=== PATIENT | female | born 1945 | race Caucasian/White ===

== ENCOUNTER → 2016-07-10 | Outpatient (CLI) | payer MEDICARE ==
[2016-07-10 08:38] LABS: Aty Lym Flag Slight; CH 30.8; HCT 40.4 % (34.0-46.0); HDW 2.53; HGB 13.7 gm/dL (11.4-16.0); MCH 30.8 pg (25.0-35.0); MCHC 33.8 g/dL (31.0-37.0); MCV 91.1 fL (80.0-100.0); Mean Platelet Volume 7.1; RBC 4.44 m/uL (3.80-5.40); RDW 11.9 % (11.5-15.5); WBC 4.6 k/uL (3.8-10.6); WBC (Perox) 4.99
[2016-07-10 09:14] LABS: ALT 29 U/L (9-52); AST 21 U/L (14-36); Alkaline Phosphatase 38 U/L (38-126); Anion Gap 11 mmol/L; Blood Urea Nitrogen 16 mg/dL (7-17); Calcium 9.9 mg/dL (8.4-10.2); Carbon Dioxide 30 mmol/L (22-30); Chloride 101 mmol/L (98-107); Cholesterol 197 mg/dL (<200); Glucose 90 mg/dL (74-99); HDL Cholesterol 85 mg/dL (40-60); Non-African American GFR(MDRD) >60 (>60 ml/min/1.73 sqM); Potassium 4.1 mmol/L (3.5-5.1); Sodium 142 mmol/L (137-145); Total Bilirubin 0.9 mg/dL (0.2-1.3); Total Protein 7.8 g/dL (6.3-8.2); Triglycerides 54 mg/dL (<150)
[2016-07-10 09:32] LABS: Add Differential Manual Differential
[2016-07-10 09:34] LABS: Manual Review Performed; Nucleated Red Blood Cells 0 /100 WBC (0-0); Total Cells Counted 100
[2016-07-10 09:35] LABS: RBC Morphology Normal
--- NOTE | 2016-07-10 13:43 | BD ---
EXAMINATION TYPE: MG DEXA axial skeleton. DATE OF EXAM: 07/10/2016 8:27 AM CLINICAL HISTORY: Height: 121 Weight: 64.25 FRAX RISK QUESTIONS: Alcohol (3 or more units per day): no Family History (Parent hip fracture): no Glucocorticoids (More than 3mos): no (Ex: prednisone, prednisolone, methylprednisolone, dexamethasone, and hydrocortisone). History of Fracture in Adulthood: yes Secondary Osteoporosis: 1. Type 1 Diabetes: no 2. Hyperthyroidism: no 3. Menopause before 45: no 4. Malnutrition: no 5. Chronic liver disease: no Rheumatoid Arthritis: no Current Tobacco Use: no RISK FACTORS HISTORY OF: Other Fractures since Age 51: yes, elbow When: about 3 years ago Family History of Osteoporosis: no Drink Alcohol: yes, sometimes Active: yes Diet low in dairy products/other sources of calcium: no Postmenopausal woman: yes Take estrogen and/or progesterone medications: no Lost more than 2 inches in height since high school: no Frequent falls: no Poor Health: no Hyperparathyroidism: no Adrenal Insufficiency: no MEDICATIONS: Prednisone or other steroids: no Thyroid Medications: no Osteoporosis Medications: not now Which medication: Fosamax How Long: a couple years Additional Medications: calcium with Vitamin D, blood pressure meds EXAM MEASUREMENTS: Bone mineral densitometry was performed using the [employer] System. Bone mineral density as measured about the Lumbar spine is: ----- L1-L4(G/cm2): 1.395 T Score Values are as follows: ----- L2: 1.1 ----- L3: 2.8 ----- L4: 2.6 ----- L1-L4: 1.8 Bone mineral density has: Increased 12.2% since study of: 05/14/2006 Bone mineral density about the R hip (g/cm2): 0.896 Bone mineral density about the L hip (g/cm2): 0.832 T Score values are as follows: -----R Neck: -1.0 -----L Neck: -1.5 -----R Intertrochanter: -0.5 -----L Intertrochanter: -0.5 Bone mineral density has: Decreased -2.8% since study of: 05/14/2006 IMPRESSION: Normal (Values between +1 and -1 indicate normal bone mass) NOTE: T-SCORE=SD OF THE YOUNG ADULT MEAN.
--- NOTE | 2016-07-11 10:38 | MM ---
Reason for exam: screening (asymptomatic). Last mammogram was performed 1 year and 3 months ago. History: Patient is postmenopausal. Benign stereotactic core biopsy of the right breast, March 18, 2003. Physical Findings: A clinical breast exam by your physician is recommended on an annual basis and results should be correlated with mammographic findings. MG 3D Screening Mammo W/Cad Bilateral CC and MLO view(s) were taken. Prior study comparison: April 14, 2015, bilateral MG screening mammo w CAD. March 23, 2014, bilateral MG screening mammo w CAD. Previous mammotome biopsy in the right breast. Stable nodule in the left upper outer quadrant posterior position. No significant changes when compared with prior studies. ASSESSMENT: Benign, BI-RAD 2 RECOMMENDATION: Routine screening mammogram of both breasts in 1 year.
== END ==
LOC: RADMAMWWP 07:03
PROVIDERS: ATTEND Family Medicine
DX: Z12.31 Encounter for screening mammogram for malignant neoplasm of breast (principal); Z78.0 Asymptomatic menopausal state
CPT/HCPCS: 80061; 80053; 84443; 85025; 77080; 77063; 36415; G0202

== ENCOUNTER → 2017-07-17 | Outpatient (CLI) | payer MEDICARE ==
--- NOTE | 2017-07-17 13:57 | MR ---
EXAMINATION TYPE: MR angio head wo con DATE OF EXAM: 07/17/2017 COMPARISON: 09/11/2015 HISTORY: 71-year-old female follow-up Cerebral Aneurysm TECHNIQUE: High-resolution 3-D [id number] images focusing on the [place] were performed without contrast. Rotational 3-D reconstructions generated on a dedicated independent workstation. 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 Currently, this measures 3.4 x 1.6 cm, slightly less pronounced. This may reflect some interval development of internal thrombus. Redemonstrated persistent origin to the left posterior cerebral artery. No significant stenosis or arterial occlusion. No additional aneurysmal change seen. 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 This may be secondary to interval development of some thrombus withi n the aneurysm.
== END | disposition home or self-care (01) ==
LOC: RADMRIMAIN 07:36
PROVIDERS: ATTEND Family Medicine
DX: I72.6 Aneurysm of vertebral artery (principal)
CPT/HCPCS: 70544

== ENCOUNTER → 2017-07-31 | Outpatient (CLI) | payer MEDICARE ==
--- NOTE | 2017-07-31 13:34 | MM ---
Reason for exam: screening (asymptomatic). Last mammogram was performed 1 year and 1 month ago. History: Patient is postmenopausal. Benign stereotactic core biopsy of the right breast, March 18, 2003. Physical Findings: A clinical breast exam by your physician is recommended on an annual basis and results should be correlated with mammographic findings. MG 3D Screening Mammo W/Cad Bilateral CC and MLO view(s) were taken. Prior study comparison: July 10, 2016, bilateral MG 3d screening mammo w/cad. April 14, 2015, bilateral MG screening mammo w CAD. The breast tissue is heterogeneously dense. This may lower the sensitivity of mammography. No suspicious abnormality. Right biopsy marker with post biopsy change. No significant changes when compared with prior studies. ASSESSMENT: Benign, BI-RAD 2 RECOMMENDATION: Routine screening mammogram of both breasts in 1 year.
== END | disposition home or self-care (01) ==
LOC: RADMAMWWP 09:37
PROVIDERS: ATTEND Family Medicine
DX: Z12.31 Encounter for screening mammogram for malignant neoplasm of breast (principal)
CPT/HCPCS: 77063; 77067

== ENCOUNTER 2019-12-15 09:13 | Day surgery (SDC) | payer MEDICARE ==
[2019-12-10 14:46] VITALS: BMI 20.5
[~2019-12-15 09:13] MED LIST: LACTATED RINGERS 1,000 ML IV SCH; LIDOCAINE 1% (10MG/ML) FOR IV START INTRADERMA PRN
[2019-12-15 10:01] VITALS: TEMP 98.5
[2019-12-15] MEDS ORDERED: PROPOFOL 10 MG/ML 20 ML VIAL IV ONE (10:53)
[2019-12-15] MEDS ORDERED: LIDOCAINE 1% INJ 10MG/ML (20 ML MDV) ONE (10:53)
--- NOTE | 2019-12-15 11:10 | P.PCN ---
Date of Procedure: 12/15/19 Procedure(s) Performed: BRIEF HISTORY: Patient is a 74-year-old pleasant white female scheduled for an elective colonoscopy as a part of evaluation of chronic diarrhea for the last 6 months duration. She has bowel movements daily from 5-6 a day which are loose to watery in consistency. Denies any blood or mucus in the stool. PROCEDURE PERFORMED: Colonoscopy with random biopsy. PREOPERATIVE DIAGNOSIS: Chronic diarrhea of 6 months duration. IV sedation per Anesthesia. PROCEDURE: After informed consent was obtained, the patient, was brought into the endoscopy unit. IV sedation was administered by Anesthesia under continuous monitoring. Digital rectal examination was normal. Initially the Olympus CF-160 flexible video colonoscope was then inserted in the rectum, gradually advanced into the cecum without any difficulty. Careful examination was performed as the scope was gradually being withdrawn. Ileocecal valve and the appendiceal orifice were visualized and appeared normal. Prep was excellent. Mucosa of the cecum, ascending colon, transverse colon, descending colon, sigmoid colon, and rectum appeared normal. Random biopsies were done from ascending and descending colon to rule out microscopic/collagenous colitis Retroflexion was performed in the rectum and no lesions were seen. The patient tolerated the procedure well. IMPRESSION: Normal-appearing colon from rectum to cecum no evidence of colorectal neoplasia. RECOMMENDATIONS: Findings of this examination were discussed with the patient as well as a family. She was advised to follow with the biopsy results and she'll be seen in office in 2 weeks.
[2019-12-15 11:16] VITALS: RESP 16
[2019-12-15 11:36] VITALS: BP 106/59; PULSE 61
== END 2019-12-15 11:51 | disposition home or self-care (01) ==
LOC: ORWHC2ENDO 09:13
PROVIDERS: ATTEND Internal Medicine Gastroenterology
DX: K52.831 Collagenous colitis (principal); K52.9 Noninfective gastroenteritis and colitis, unspecified; Z79.82 Long term (current) use of aspirin; Z79.899 Other long term (current) drug therapy; I10 Essential (primary) hypertension
CPT/HCPCS: 45380; 88305; 88313; J2001; J2704

== ENCOUNTER → 2019-12-20 | Outpatient (CLI) | payer MEDICARE ==
--- NOTE | 2019-12-20 11:58 | BD ---
EXAMINATION TYPE: Axial Bone Density DATE OF EXAM: 12/20/2019 COMPARISON: 07/10/2016 CLINICAL HISTORY: Postmenopausal female Height: 63 IN Weight: 121 LBS FRAX RISK QUESTIONS: Alcohol (3 or more units per day): YES History of Fracture in Adulthood: LEFT ELBOW FX AGE 67 RISK FACTORS HISTORY OF: Active: YES Postmenopausal woman: PARTIAL HYST AGE 48 Take estrogen and/or progesterone medications: NOT NOW How lon YEARS MEDICATIONS: Additional Medications: CALCIUM, MULTI VIT, LISINOPRIL, HCTZ, GARLIC, BABY ASPIRIN EXAM MEASUREMENTS: Bone mineral densitometry was performed using the [employer]. Bone mineral density as measured about the Lumbar spine is: ----- L1-L4(G/cm2): 1.361 T Score Values are as follows: ----- L2: 1.0 ----- L3: 2.3 ----- L4: 2.7 ----- L1-L4: 1.5 Bone mineral density has: Decreased -0.9% since study of: 07/10/2016 Bone mineral density about the R hip (g/cm2): 0.872 Bone mineral density about the L hip (g/cm2): 0.818 T Score values are as follows: -----R Neck: -1.2 -----L Neck: -1.6 -----R Total: -0.5 -----L Total: -0.6 Bone mineral density has: Decreased -1.3% since study of: 07/10/2016 IMPRESSION: Normal (Values between +1 and -1 indicate normal bone mass). Consider repeating this study in 5 year s or sooner if there is some new clinical indication. NOTE: T-SCORE=SD OF THE YOUNG ADULT MEAN.
--- NOTE | 2019-12-21 12:06 | MM ---
Reason for exam: screening (asymptomatic). Last mammogram was performed 1 year and 3 months ago. History: Patient is postmenopausal. Benign stereotactic core biopsy of the right breast, March 18, 2003. Physical Findings: A clinical breast exam by your physician is recommended on an annual basis and results should be correlated with mammographic findings. MG 3D Screening Mammo W/Cad Bilateral CC and MLO view(s) were taken. Prior study comparison: September 03, 2018, bilateral MG 3d screening mammo w/cad. July 31, 2017, bilateral MG 3d screening mammo w/cad. The breast tissue is heterogeneously dense. This may lower the sensitivity of mammography. There are benign appearing vascular calcifications bilaterally. Previous mammotome biopsy in the right breast. There is no discrete abnormality. ASSESSMENT: Benign, BI-RAD 2 RECOMMENDATION: Routine screening mammogram of both breasts in 1 year.
== END | disposition home or self-care (01) ==
LOC: RADMAMWWP 10:13
PROVIDERS: ATTEND Family Medicine
DX: Z12.31 Encounter for screening mammogram for malignant neoplasm of breast (principal); Z78.0 Asymptomatic menopausal state
CPT/HCPCS: 77063; 77067; 77080

== ENCOUNTER → 2021-02-22 | Outpatient (CLI) | payer MEDICARE ==
--- NOTE | 2021-02-23 13:51 | MM ---
Reason for exam: screening (asymptomatic). Last mammogram was performed 1 year and 2 months ago. History: Patient is postmenopausal. Benign stereotactic core biopsy of the right breast, March 18, 2003. Physical Findings: A clinical breast exam by your physician is recommended on an annual basis and results should be correlated with mammographic findings. MG 3D Screening Mammo W/Cad Bilateral CC and MLO view(s) were taken. Prior study comparison: December 20, 2019, bilateral MG 3d screening mammo w/cad. September 03, 2018, bilateral MG 3d screening mammo w/cad. The breast tissue is heterogeneously dense. This may lower the sensitivity of mammography. Stable benign calcifications. There is no discrete abnormality. No significant changes when compared with prior studies. ASSESSMENT: Benign, BI-RAD 2 RECOMMENDATION: Routine screening mammogram of both breasts in 1 year.
== END | disposition home or self-care (01) ==
LOC: RADMAMWWP 09:11
PROVIDERS: ATTEND Family Medicine
DX: Z12.31 Encounter for screening mammogram for malignant neoplasm of breast (principal)
CPT/HCPCS: 77063; 77067

== ENCOUNTER → 2022-02-25 | Outpatient (CLI) | payer MEDICARE ==
--- NOTE | 2022-02-26 15:24 | MM ---
Reason for Exam: Screening (asymptomatic). Last screening mammogram was performed 12 month(s) ago. Patient History: Menarche at age 14. First Full-Term at age 26. Hysterectomy at age 57. Postmenopausal. 03/18/2003, Benign Stereotactic Core Biopsy on the right side. Risk Values: Yolanda 5 year model risk: 2.3%. NCI Lifetime model risk: 5.0%. Prior Study Comparison: 09/03/2018 Bilateral Screening Mammogram, [facility]. 12/20/2019 Bilateral Screening Mammogram, [facility]. 02/22/2021 Bilateral Screening Mammogram, [facility]. Tissue Density: The breast tissue is heterogeneously dense. This may lower the sensitivity of mammography. Findings: Analyzed By CAD. Benign-appearing vascular calcifications bilaterally is redemonstrated. There is mammotome biopsy clip in the right breast again seen. Benign-appearing bilateral axillary lymph nodes are present. There is no suspicious group of microcalcifications or new suspicious mass in either breast. Overall Assessment: Benign, BI-RAD 2 Management: Screening Mammogram of both breasts in 1 year. A clinical breast exam by your physician is recommended on an annual basis and results should be correlated with mammographic findings. Electronically signed and approved by: Won Pierson M.D.
== END | disposition home or self-care (01) ==
LOC: RADMAMWWP 11:36
PROVIDERS: ATTEND Family Medicine
DX: Z12.31 Encounter for screening mammogram for malignant neoplasm of breast (principal); Z78.0 Asymptomatic menopausal state
CPT/HCPCS: 77063; 77067

== ENCOUNTER → 2023-02-26 | Outpatient (CLI) | payer MEDICARE ==
--- NOTE | 2023-02-27 10:15 | MM ---
Reason for Exam: Screening (asymptomatic). Last screening mammogram was performed 12 month(s) ago. Patient History: Menarche at age 14. First Full-Term at age 26. Hysterectomy at age 57. Postmenopausal. 03/18/2003, Benign Stereotactic Core Biopsy on the right side. Risk Values: Yolanda 5 year model risk: 2.3%. NCI Lifetime model risk: 4.7%. Prior Study Comparison: 12/20/2019 Bilateral Screening Mammogram, [facility]. 02/22/2021 Bilateral Screening Mammogram, [facility]. 02/25/2022 Bilateral MG 3D screening mammo w/cad, [facility]. Tissue Density: The breast tissue is heterogeneously dense. This may lower the sensitivity of mammography. Findings: Analyzed By CAD. Right breast biopsy clip. There is no suspicious group of microcalcifications or new suspicious mass. Overall Assessment: Benign, BI-RAD 2 Management: Screening Mammogram of both breasts in [address] [facility] will attempt to contact patient to return for supplemental views and ultrasound if indicated. Patient should continue monthly self-breast exams. A clinical breast exam by your physician is recommended on an annual basis. This exam should not preclude additional follow-up of suspicious palpable abnormalities. Note on Yolanda scores and lifetime risk: 1. A Yolanda score greater than 3% is considered moderate risk. If this is the case, consider specialist referral to assess eligibility for a risk reducing agent. 2. If overall lifetime risk for the development of breast cancer is 20% or higher, the patient may qualify for future screening with alternating mammogram and breast MRI. Electronically signed and approved by: Benjy Tipton DO
== END | disposition home or self-care (01) ==
LOC: RADMAMWWP 08:52
PROVIDERS: ATTEND Family Medicine
DX: Z12.31 Encounter for screening mammogram for malignant neoplasm of breast (principal); Z78.0 Asymptomatic menopausal state
CPT/HCPCS: 77063; 77067

== ENCOUNTER → 2023-03-05 | Outpatient (CLI) | payer MEDICARE ==
[2023-03-05 09:23] LABS: African American GFR (CKD) >90 (>60 ml/min/1.73 sqM); Blood Urea Nitrogen 21 mg/dL (7-17); Non-African American GFR(CKD) 85 (>60 ml/min/1.73 sqM)
--- NOTE | 2023-03-05 10:50 | CT ---
EXAMINATION TYPE: CT soft tissue neck w con DATE OF EXAM: 03/05/2023 COMPARISON: None HISTORY: 77-year-old female dyspnea, lump on left side of neck/throat TECHNIQUE: Contiguous axial scanning of the soft tissues of the neck performed with IV Contrast, jamie ent injected with 100 mL of Isovue 300. Coronal and sagittal reconstructions performed. CT DLP: 335 mGycm Automated exposure control for dose reduction was used. FINDINGS: Visualized orbits and globes, intracranial structures, and mastoid air cells appear clear. There is l eftward nasal septal deviation. The nasopharynx and oropharynx appears clear. Epiglottis and prevertebral soft tissues are satisfactory. Slight asymmetric soft tissue thickening along the left aryepiglottic fold but without discrete mass seen. Correlate with direct inspection. Otherwise, glottic and subglottic structures as well as the tracheal column appears clear. Some emphy sematous change in the visualized upper lungs. The thyroid and submandibular glands appear satisfactory. Atrophic parotid glands. Streak and beam mireles rdening artifact from the patient's earrings limiting full visualization. No cervical adenopathy identified. 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 IMPRESSION: 1. ASYMMETRIC SOFT TISSUE THICKENING LEFT ARYEPIGLOTTIC FOLD BUT WITHOUT DISCRETE MASS SEEN. CORRELAT E WITH FINDINGS ON DIRECT INSPECTION. 2. NO SUSPICIOUS CERVICAL ADENOPATHY IDENTIFIED. 3. COPD WITH MILD EMPHYSEMA.
[2023-03-05 14:56] LABS: Basophils # (A) 0.03 X 10*3/uL (0.00-0.10); Basophils % (A) 0.7 %; Eosinophils # (A) 0.16 X 10*3/uL (0.04-0.35); Eosinophils % (A) 3.6 %; HCT 41.4 % (37.2-46.3); HGB 13.5 g/dL (12.0-15.0); Lymphocytes # (A) 1.13 X 10*3/uL (0.90-5.00); Lymphocytes % (A) 25.2 %; MCH 29.8 pg (27.0-32.0); MCHC 32.6 g/dL (32.0-37.0); MCV 91.4 FL (80.0-97.0); Mean Platelet Volume 10.6 FL (9.5-12.2); Monocytes # (A) 0.53 X 10*3/uL (0.20-1.00); Monocytes % (A) 11.8 %; NRBC Per 100 WBC 0 X 10*3/uL (0.00-0.01); Neutrophils # (A) 2.62 X 10*3/uL (1.80-7.70); Neutrophils % (A) 58.5 %; Platelet Count 188 X 10*3/uL (140-440); RBC 4.53 X 10*6/uL (4.10-5.20); RDW 12.5 % (11.5-14.5); WBC 4.48 X 10*3/uL (4.50-10.00)
== END | disposition home or self-care (01) ==
LOC: RADCTMAIN 08:02
PROVIDERS: ATTEND Otolaryngology
DX: D37.09 Neoplasm of uncertain behavior of other specified sites of the oral cavity (principal); J44.9 Chronic obstructive pulmonary disease, unspecified; J43.9 Emphysema, unspecified; J38.7 Other diseases of larynx
CPT/HCPCS: 82565; 84520; 85025; 70491; 36415; Q9967

== ENCOUNTER 2023-04-07 16:25 | Inpatient (IN) | payer MEDICARE ==
--- NOTE | 2023-04-07 16:55 | ED ---
Neuro HPI - General Chief Complaint: Neuro Symptoms/Deficit Stated Complaint: SOB Time Seen by Provider: 04/07/23 16:36 Source: patient, family Mode of arrival: ambulatory Limitations: altered mental status - History of Present Illness Is the patient presenting with stroke symptoms?: Yes Last Known Well Date: 04/07/23 Last Known Well Time: 15:00 Onset/Timin -: hour(s) Initial Comments: This patient is 77-year-old woman who arrives to have evaluation for suspected stroke. The patient is not able to provide any history. The patient's states that he had taken her to have rehabilitation which she has been having following knee surgery. He states that when rehab was finished, she seemed very anxious and she was not able to speak with him. This got worse and he was concerned she was having a stroke. In the arrival the patient is not able to answer any questions. She is following simple commands here. No reported history of trauma at the rehab session today. Patient's states that his beejbyy-fr-wbl (the patient's brother) had a very similar episode following an orthopedic surgery and was found to be having a stroke. Location: speech Severity: severe Improves With: none Worsens With: none On Anticoagulants: No Context: sudden onset Treatments Prior to Arrival: none - Related Data Home Medications: Home Medications Medication Instructions Recorded Confirmed lisinopriL [Prinivil] 10 mg PO DAILY 12/10/19 04/10/23 Docusate [Colace] 100 mg PO BID PRN 04/07/23 04/10/23 HYDROcodone/APAP 7.5-325MG [[place] 1 tab PO Q4H PRN 04/07/23 04/10/23 7.5-325] Ondansetron [Zofran] 4 mg PO Q8H PRN 04/07/23 04/10/23 Previous Rx's Medication Instructions Recorded Aspirin 81 mg PO DAILY #30 tab 04/10/23 Atorvastatin [Lipitor] 40 mg PO DAILY #30 tab 04/10/23 Pantoprazole [Protonix] 40 mg PO DAILY #30 tab 04/10/23 Allergies/Adverse Reactions: Allergies Allergy/AdvReac Type Severity Reaction Status Date / Time No Known Allergies Allergy Verified 04/10/23 18:13 Review of Systems ROS Statement: Those systems with pertinent positive or pertinent negative responses have been documented in the HPI. ROS Other: All systems not noted in ROS Statement are negative. Limitations: ROS unobtainable due to patients medical condition Constitutional: Denies: fever Neurological: Reports: confusion General Exam Limitations: altered mental status General appearance: alert, anxious Head exam: Present: atraumatic, normocephalic Eye exam: Present: normal appearance, PERRL, EOMI. Absent: scleral icterus, conjunctival injection, nystagmus ENT exam: Present: normal oropharynx Neck exam: Present: normal inspection, full ROM. Absent: tenderness, meningismus Respiratory exam: Present: respiratory distress (Mild tachypnea). Absent: wheezes, rales, rhonchi, stridor, accessory muscle use Cardiovascular Exam: Present: regular rate, normal rhythm, normal heart sounds. Absent: systolic murmur, diastolic murmur, rubs, gallop GI/Abdominal exam: Present: soft. Absent: distended, tenderness, guarding, rebound, rigid, mass Extremities exam: Present: normal inspection, normal capillary refill. Absent: pedal edema, calf tenderness Back exam: Present: normal inspection. Absent: vertebral tenderness Neurological exam: Present: alert. Absent: motor sensory deficit Expanded Neurological exam: Present: expressive aphasia Speech: Present: expressive aphasia Cranial nerves: EOM's Intact: Normal, Gag Reflex: Normal, Tongue Deviation: Normal Motor strength exam: RUE: 5, LUE: 5, RLE: 5, LLE: 5 Eye Response: (4) open spontaneously Motor Response: (6) obeys commands Verbal Response: (1) no verbal response Skin exam: Present: warm, dry, intact, normal color. Absent: rash Stroke MDM - Lab Data Result diagrams: 04/10/23 07:29 04/09/23 07:48 Lab Results 04/07/23 04/07/23 04/07/23 Range/Units 16:47 16:47 16:47 WBC 8.7 (3.8-10.6) k/uL RBC 3.98 (3.80-5.40) m/uL Hgb 12.2 (11.4-16.0) gm/dL Hct 36.2 (34.0-46.0) % MCV 90.9 (80.0-100.0) fL MCH 30.7 (25.0-35.0) pg MCHC 33.8 (31.0-37.0) g/dL RDW 12.5 (11.5-15.5) % Plt Count 354 (150-450) k/uL MPV 8.2 Neutrophils % 67 % Lymphocytes % 22 % Monocytes % 8 % Eosinophils % 1 % Basophils % 0 % Neutrophils # 5.9 (1.3-7.7) k/uL Lymphocytes # 1.9 (1.0-4.8) k/uL Monocytes # 0.7 (0-1.0) k/uL Eosinophils # 0.1 (0-0.7) k/uL Basophils # 0.0 (0-0.2) k/uL PT 10.5 (10.0-12.5) sec INR 0.9 (<1.2) APTT 20.4 L (22.0-30.0) sec Sodium 133 L (137-145) mmol/L Potassium 4.0 (3.5-5.1) mmol/L Chloride 101 (98-107) mmol/L Carbon Dioxide 18 L (22-30) mmol/L Anion Gap 14 mmol/L BUN 24 H (7-17) mg/dL Creatinine 0.80 (0.52-1.04) mg/dL Est GFR (CKD-EPI)AfAm 83 (>60 ml/min/1.73 sqM) Est GFR (CKD-EPI)NonAf 72 (>60 ml/min/1.73 sqM) Glucose 102 H (74-99) mg/dL POC Glucose (mg/dL) (70-110) mg/dL POC Glu Editor Dictionary ID Calcium 9.3 (8.4-10.2) mg/dL Total Bilirubin 1.4 H (0.2-1.3) mg/dL AST 32 (14-36) U/L ALT 26 (4-34) U/L Alkaline Phosphatase 59 (38-126) U/L Creatine Kinase 100 (30-135) U/L Troponin I (0.000-0.034) ng/mL Total Protein 7.4 (6.3-8.2) g/dL Albumin 4.4 (3.5-5.0) g/dL 04/07/23 04/07/23 Range/Units 16:47 17:27 WBC (3.8-10.6) k/uL RBC (3.80-5.40) m/uL Hgb (11.4-16.0) gm/dL Hct (34.0-46.0) % MCV (80.0-100.0) fL MCH (25.0-35.0) pg MCHC (31.0-37.0) g/dL RDW (11.5-15.5) % Plt Count (150-450) k/uL MPV Neutrophils % % Lymphocytes % % Monocytes % % Eosinophils % % Basophils % % Neutrophils # (1.3-7.7) k/uL Lymphocytes # (1.0-4.8) k/uL Monocytes # (0-1.0) k/uL Eosinophils # (0-0.7) k/uL Basophils # (0-0.2) k/uL PT (10.0-12.5) sec INR (<1.2) APTT (22.0-30.0) sec Sodium (137-145) mmol/L Potassium (3.5-5.1) mmol/L Chloride (98-107) mmol/L Carbon Dioxide (22-30) mmol/L Anion Gap mmol/L BUN (7-17) mg/dL Creatinine (0.52-1.04) mg/dL Est GFR (CKD-EPI)AfAm (>60 ml/min/1.73 sqM) Est GFR (CKD-EPI)NonAf (>60 ml/min/1.73 sqM) Glucose (74-99) mg/dL POC Glucose (mg/dL) 106 (70-110) mg/dL POC Glu Editor Dictionary ID Glenys Suresh Calcium (8.4-10.2) mg/dL Total Bilirubin (0.2-1.3) mg/dL AST (14-36) U/L ALT (4-34) U/L Alkaline Phosphatase (38-126) U/L Creatine Kinase (30-135) U/L Troponin I <0.012 (0.000-0.034) ng/mL Total Protein (6.3-8.2) g/dL Albumin (3.5-5.0) g/dL - Medical Decision Making The patient is a 77-year-old woman here with the acute onset of aphasia. The case was discussed with the stroke team and their recommendation was to give tenecteplase if the noncontrast CT did not reveal an intracranial hemorrhage. I discussed this with the patient and her . The patient's did give consent as the patient was not able to indicate consent or reject treatment due to the aphasia. The discussion included indications, risks, and benefits. After the computed tomography scan had been interpreted tonight to place was ordered and was administered by nursing staff. The patient then did begin to have some improvement after interval. Case discussed with admitting physician and then subsequently with the sign fabricator as the patient will require admission there following thrombolytic treatment. The patient had CT scan of the brain which I interpreted as negative for acute intracranial hemorrhage The patient had chest x-ray which I interpreted as negative for acute infiltra te, congestive heart failure, pneumothorax Please note that the administration time for TNKase was delayed as the patient initially triaged as dyspnea rather than as a neurologic symptom complaint, and therefore not immediately activated as code. Was pt. sent in by a medical professional or institution (, PA, CLAM DREDGER, urgent care, hospital, or penitentiary...) When possible be specific @ -[No] Did you speak to anyone other than the patient for history (EMS, parent, family, police, friend...)? What history was obtained from this source @ -The patient's gave majority of history Did you review nursing and triage notes (agree or disagree)? Why? @ -[I reviewed and agree with nursing and triage notes] Were old charts reviewed (outside hosp., previous admission, EMS record, old E KG, old radiological studies, urgent care reports/EKG's, penitentiary records)? Report findings @ -[No old charts were reviewed] Differential Diagnosis (chest pain, altered mental status, abdominal pain women, abdominal pain men, vaginal bleeding, weakness, fever, dyspnea, syncope, headache, dizziness, GI bleed, back pain, seizure, CVA, palpatations, mental health, musculoskeletal)? @ -[Differential CVA Ischemic stroke, hemorrhagic stroke, brain tumor, atypical migraine, Wernicke's encephalopathy, seizure, multiple sclerosis, meningitis, encephalitis, hypoglycemia, Guillain-Mccarthy, electrolytes disturbance, myasthenia gravis.... This is not meant to be an all-inclusive list EKG interpreted by me (3pts min.). @ -[I interpreted as above] X-rays interpreted by me (1pt min.). @ -I interpreted as above CT interpreted by me (1pt min.). @ -[I interpreted as above U/S interpreted by me (1pt. min.). @ -[None done] What testing was considered but not performed or refused? (CT, X-rays, U/S, labs)? Why? @ -[None] What meds were considered but not given or refused? Why? @ -[None] Did you discuss the management of the patient with other professionals (professionals i.e. , PA, CLAM DREDGER, lab, RT, psych nurse, nursing home social worker, advanced manager, teacher, chief digital media officer, patient case manager)? Give summary @ -Case discussed with the stroke interventionalists team. Case discussed with admitting physician. Treatment recommendations are incorporated Was smoking cessation discussed for >3mins.? @ -[No] Was critical care preformed (if so, how long)? @ -[Yes 50 minutes Were there social determinants of health that impacted care today? How? (Homelessness, low income, unemployed, alcoholism, drug addiction, transportation, low edu. Level, literacy, decrease access to med. care, [facility], rehab)? @ -[No] Was there de-escalation of care discussed even if they declined (Discuss DNR or withdrawal of care, Hospice)? DNR status @ -[No] What co-morbidities impacted this encounter? (DM, HTN, Smoking, COPD, CAD, Cancer, CVA, ARF, Chemo, Hep., AIDS, mental health diagnosis, sleep apnea, morbid obesity)? @ -[None] Was patient admitted / discharged? Hospital course, mention meds given and route, prescriptions, significant lab abnormalities, going to OR and other pertinent info. @ -[See above Undiagnosed new problem with uncertain prognosis? @ -[No] Drug Therapy requiring intensive monitoring for toxicity (Heparin, Nitro, Insulin, Cardizem)? @ -[TNKase Were any procedures done? @ -[No] Diagnosis/symptom? @ -[Acute aphasia Acute ischemic stroke versus TIA Acute, or Chronic, or Acute on Chronic? @ -[Acute Uncomplicated (without systemic symptoms) or Complicated (systemic symptoms)? @ -[Complicated by aphasia Side effects of treatment? @ -[No] Exacerbation, Progression, or Severe Exacerbation? @ -[No] Poses a threat to life or bodily function? How? (Chest pain, USA, VT, pneumonia, PE, COPD, DKA, ARF, appy, cholecystitis, CVA, Diverticulitis, Homicidal, Suicidal, threat to staff... and all critical care pts) @ -[Yes - EKG Data -: EKG Interpreted by Me EKG shows normal: sinus rhythm, QRS complexes (Incomplete right bundle branch block) Rate: normal (Rate 86 bpm) Past Medical History Past Medical History: Hypertension History of Any Multi-Drug Resistant Organisms: None Reported Past Surgical History: Hysterectomy, Orthopedic Surgery Additional Past Surgical History / Comment(s): Knee surgery, left surgery surgery. Past Anesthesia/Blood Transfusion Reactions: No Reported Reaction Past Psychological History: No Psychological Hx Reported Smoking Status: Former smoker Past Alcohol Use History: Daily Past Drug Use History: None Reported - Past Family History Mother Family Medical History: No Reported History Course Vital Signs 04/07/23 04/07/23 04/07/23 16:30 16:35 16:50 Temperature 97.5 F L Pulse Rate 90 Respiratory 26 H 34 H 28 H Rate Blood Pressure 120/58 139/87 124/68 O2 Sat by Pulse 98 Oximetry 04/07/23 04/07/23 04/07/23 17:02 17:05 17:20 Temperature Pulse Rate 51 L 92 50 L Respiratory 28 H 32 H 34 H Rate Blood Pressure 151/103 114/104 130/97 O2 Sat by Pulse 95 91 L Oximetry 04/07/23 04/07/23 04/08/23 18:00 21:42 01:16 Temperature 100.7 F H Pulse Rate 75 90 Respiratory 18 18 Rate Blood Pressure 142/55 118/65 O2 Sat by Pulse 98 99 Oximetry 04/08/23 04/08/23 04/08/23 03:00 04:00 07:31 Temperature 99.2 F Pulse Rate 77 80 76 Respiratory 18 18 18 Rate Blood Pressure 129/68 132/65 122/70 O2 Sat by Pulse 98 96 98 Oximetry 04/08/23 08:06 Temperature 97.9 F Pulse Rate 85 Respiratory 48 H Rate Blood Pressure 119/63 O2 Sat by Pulse 98 Oximetry - Reevaluation(s) Reevaluation #1: 04/07/23 16:54 Case discussed with , from the interventional team who does recommend giving TNKase at this point if the computed tomography scan is negative. Critical Care Time Critical Care Time: Yes (50 minutes) Disposition Clinical Impression: Cerebrovascular accident (CVA), Aphasia Disposition: ADMITTED IP TO THIS HOSP Condition: Fair Is patient prescribed a controlled substance at d/c from ED?: No
--- NOTE | 2023-04-07 16:56 | ED ---
Neuro HPI - General Chief Complaint: Neuro Symptoms/Deficit Stated Complaint: SOB Time Seen by Provider: 04/07/23 16:36 Source: patient, family Mode of arrival: ambulatory Limitations: altered mental status - History of Present Illness Is the patient presenting with stroke symptoms?: Yes Last Known Well Date: 04/07/23 Last Known Well Time: 15:00 - Related Data Home Medications: Home Medications Medication Instructions Recorded Confirmed lisinopriL [Prinivil] 10 mg PO DAILY 12/10/19 04/10/23 Docusate [Colace] 100 mg PO BID PRN 04/07/23 04/10/23 HYDROcodone/APAP 7.5-325MG [[place] 1 tab PO Q4H PRN 04/07/23 04/10/23 7.5-325] Ondansetron [Zofran] 4 mg PO Q8H PRN 04/07/23 04/10/23 Previous Rx's Medication Instructions Recorded Aspirin 81 mg PO DAILY #30 tab 04/10/23 Atorvastatin [Lipitor] 40 mg PO DAILY #30 tab 04/10/23 Pantoprazole [Protonix] 40 mg PO DAILY #30 tab 04/10/23 Allergies/Adverse Reactions: Allergies Allergy/AdvReac Type Severity Reaction Status Date / Time No Known Allergies Allergy Verified 04/10/23 18:13 Review of Systems ROS Statement: Those systems with pertinent positive or pertinent negative responses have been documented in the HPI. ROS Other: All systems not noted in ROS Statement are negative. General Exam Limitations: altered mental status Stroke MDM - Lab Data Result diagrams: 04/10/23 07:29 04/09/23 07:48 Lab Results 04/07/23 04/07/23 04/07/23 Range/Units 16:47 16:47 16:47 WBC 8.7 (3.8-10.6) k/uL RBC 3.98 (3.80-5.40) m/uL Hgb 12.2 (11.4-16.0) gm/dL Hct 36.2 (34.0-46.0) % MCV 90.9 (80.0-100.0) fL MCH 30.7 (25.0-35.0) pg MCHC 33.8 (31.0-37.0) g/dL RDW 12.5 (11.5-15.5) % Plt Count 354 (150-450) k/uL MPV 8.2 Neutrophils % 67 % Lymphocytes % 22 % Monocytes % 8 % Eosinophils % 1 % Basophils % 0 % Neutrophils # 5.9 (1.3-7.7) k/uL Lymphocytes # 1.9 (1.0-4.8) k/uL Monocytes # 0.7 (0-1.0) k/uL Eosinophils # 0.1 (0-0.7) k/uL Basophils # 0.0 (0-0.2) k/uL PT 10.5 (10.0-12.5) sec INR 0.9 (<1.2) APTT 20.4 L (22.0-30.0) sec Sodium 133 L (137-145) mmol/L Potassium 4.0 (3.5-5.1) mmol/L Chloride 101 (98-107) mmol/L Carbon Dioxide 18 L (22-30) mmol/L Anion Gap 14 mmol/L BUN 24 H (7-17) mg/dL Creatinine 0.80 (0.52-1.04) mg/dL Est GFR (CKD-EPI)AfAm 83 (>60 ml/min/1.73 sqM) Est GFR (CKD-EPI)NonAf 72 (>60 ml/min/1.73 sqM) Glucose 102 H (74-99) mg/dL POC Glucose (mg/dL) (70-110) mg/dL POC Glu Talent Advisor ID Calcium 9.3 (8.4-10.2) mg/dL Total Bilirubin 1.4 H (0.2-1.3) mg/dL AST 32 (14-36) U/L ALT 26 (4-34) U/L Alkaline Phosphatase 59 (38-126) U/L Creatine Kinase 100 (30-135) U/L Troponin I (0.000-0.034) ng/mL Total Protein 7.4 (6.3-8.2) g/dL Albumin 4.4 (3.5-5.0) g/dL 04/07/23 04/07/23 Range/Units 16:47 17:27 WBC (3.8-10.6) k/uL RBC (3.80-5.40) m/uL Hgb (11.4-16.0) gm/dL Hct (34.0-46.0) % MCV (80.0-100.0) fL MCH (25.0-35.0) pg MCHC (31.0-37.0) g/dL RDW (11.5-15.5) % Plt Count (150-450) k/uL MPV Neutrophils % % Lymphocytes % % Monocytes % % Eosinophils % % Basophils % % Neutrophils # (1.3-7.7) k/uL Lymphocytes # (1.0-4.8) k/uL Monocytes # (0-1.0) k/uL Eosinophils # (0-0.7) k/uL Basophils # (0-0.2) k/uL PT (10.0-12.5) sec INR (<1.2) APTT (22.0-30.0) sec Sodium (137-145) mmol/L Potassium (3.5-5.1) mmol/L Chloride (98-107) mmol/L Carbon Dioxide (22-30) mmol/L Anion Gap mmol/L BUN (7-17) mg/dL Creatinine (0.52-1.04) mg/dL Est GFR (CKD-EPI)AfAm (>60 ml/min/1.73 sqM) Est GFR (CKD-EPI)NonAf (>60 ml/min/1.73 sqM) Glucose (74-99) mg/dL POC Glucose (mg/dL) 106 (70-110) mg/dL POC Glu Talent Advisor ID Glenys Suresh Calcium (8.4-10.2) mg/dL Total Bilirubin (0.2-1.3) mg/dL AST (14-36) U/L ALT (4-34) U/L Alkaline Phosphatase (38-126) U/L Creatine Kinase (30-135) U/L Troponin I <0.012 (0.000-0.034) ng/mL Total Protein (6.3-8.2) g/dL Albumin (3.5-5.0) g/dL - Medical Decision Making Please note that this the administration time may have been delayed as the patient initially triaged as dyspnea rather than as a neurologic symptom complaint, and therefore not immediately activated as code. Past Medical History Past Medical History: Hypertension History of Any Multi-Drug Resistant Organisms: None Reported Past Surgical History: Hysterectomy, Orthopedic Surgery Additional Past Surgical History / Comment(s): Knee surgery, left surgery surgery. Past Anesthesia/Blood Transfusion Reactions: No Reported Reaction Past Psychological History: No Psychological Hx Reported Smoking Status: Former smoker Past Alcohol Use History: Daily Past Drug Use History: None Reported - Past Family History Mother Family Medical History: No Reported History Course Vital Signs 04/07/23 04/07/23 04/07/23 16:30 16:35 16:50 Temperature 97.5 F L Pulse Rate 90 Respiratory 26 H 34 H 28 H Rate Blood Pressure 120/58 139/87 124/68 O2 Sat by Pulse 98 Oximetry 04/07/23 04/07/23 04/07/23 17:02 17:05 17:20 Temperature Pulse Rate 51 L 92 50 L Respiratory 28 H 32 H 34 H Rate Blood Pressure 151/103 114/104 130/97 O2 Sat by Pulse 95 91 L Oximetry 04/07/23 04/07/23 04/08/23 18:00 21:42 01:16 Temperature 100.7 F H Pulse Rate 75 90 Respiratory 18 18 Rate Blood Pressure 142/55 118/65 O2 Sat by Pulse 98 99 Oximetry 04/08/23 04/08/23 04/08/23 03:00 04:00 07:31 Temperature 99.2 F Pulse Rate 77 80 76 Respiratory 18 18 18 Rate Blood Pressure 129/68 132/65 122/70 O2 Sat by Pulse 98 96 98 Oximetry 04/08/23 08:06 Temperature 97.9 F Pulse Rate 85 Respiratory 48 H Rate Blood Pressure 119/63 O2 Sat by Pulse 98 Oximetry Disposition Clinical Impression: Cerebrovascular accident (CVA), Aphasia Disposition: ADMITTED IP TO THIS [facility] Condition: Fair
--- NOTE | 2023-04-07 17:12 | CT ---
Head CT without contrast HISTORY: Neurologic deficit rule out stroke. COMPARISON: 08/13/2011. TECHNIQUE: Multiple axial images obtained from the skull base to vertex without IV contrast material. FINDINGS: The ventricles, basal cisterns and sulci of the convexities mildly enlarged consistent mild atrophy b ut appropriate for the patient's age. No abnormal density is seen throughout the brain and the brain olivares-white differentiation is well-yohan ntained. There is no mass effect or shift of midline structures. There is no acute intra or extra-axial hemorrhage. The posterior fossa including the brainstem, fourth ventricle and cerebellopontine angles are grossly normal. The intraorbital contents appear normal and symmetric. Visualized paranasal sinuses and mastoid air cells are well aerated. The calvarium is intact. IMPRESSION: 1. No acute bleed or mass effect. 2. Mild age-appropriate atrophy.
[2023-04-07 17:13] LABS: Basophils % (A) 0 %; Eosinophils # (A) 0.1 k/uL (0-0.7); Eosinophils % (A) 1 %; HCT 36.2 % (34.0-46.0); HGB 12.2 gm/dL (11.4-16.0); Lymphocytes # (A) 1.9 k/uL (1.0-4.8); Lymphocytes % (A) 22 %; MCH 30.7 pg (25.0-35.0); MCHC 33.8 g/dL (31.0-37.0); MCV 90.9 fL (80.0-100.0); Mean Platelet Volume 8.2; Monocytes # (A) 0.7 k/uL (0-1.0); Monocytes % (A) 8 %; Neutrophils # (A) 5.9 k/uL (1.3-7.7); Neutrophils % (A) 67 %; Platelet Count 354 k/uL (150-450); RBC 3.98 m/uL (3.80-5.40); RDW 12.5 % (11.5-15.5); WBC 8.7 k/uL (3.8-10.6)
--- NOTE | 2023-04-07 17:26 | CT ---
EXAMINATION TYPE: CT angio head neck DATE OF EXAM: 04/07/2023 HISTORY: Neuro deficit, acute, stroke suspected COMPARISON: None CT DLP: 372.9 mGycm. Automated Exposure Control for Dose Reduction was Utilized. TECHNIQUE: CTA scan of the head and neck is performed with IV Contrast, patient injected with 65ml m L of Isovue 370, axial images are obtained, coronal and sagittal reformatted images are reviewed. 3D reconstructed images are created on an independent workstation and reviewed. FINDINGS: The brachiocephalic origins are widely patent and there is no significant stenosis. Within the neck, the common and internal carotid arteries are widely patent without significant steno sis. The vertebral arteries are patent the left vertebral artery is slightly dominant to the right. Intracranially, there is no sizable aneurysm sac, vascular malformation, stenosis or segmental occlu sridhar. IMPRESSION: No significant abnormality seen. NASCET criteria was used in interpretation of this exam?
[2023-04-07 17:28] LABS: Glucose,Whole Blood 106 mg/dL (70-110)
[2023-04-07] MEDS: T.ENECTEPLASE 5 MG/ML VIAL IVP STA (17:30)
[2023-04-07 17:33] LABS: INR 0.9 (<1.2); Prothrombin Time 10.5 sec (10.0-12.5)
[2023-04-07 17:46] LABS: Partial Thromboplastin Time 20.4 sec (22.0-30.0)
[2023-04-07 17:56] LABS: ALT 26 U/L (4-34); AST 32 U/L (14-36); African American GFR (CKD) 83 (>60 ml/min/1.73 sqM); Albumin 4.4 g/dL (3.5-5.0); Alkaline Phosphatase 59 U/L (38-126); Anion Gap 14 mmol/L; Blood Urea Nitrogen 24 mg/dL (7-17); Calcium 9.3 mg/dL (8.4-10.2); Carbon Dioxide 18 mmol/L (22-30); Chloride 101 mmol/L (98-107); Creatine Kinase 100 U/L (30-135); Glucose 102 mg/dL (74-99); Non-African American GFR(CKD) 72 (>60 ml/min/1.73 sqM); Sodium 133 mmol/L (137-145); Total Bilirubin 1.4 mg/dL (0.2-1.3); Total Protein 7.4 g/dL (6.3-8.2)
--- NOTE | 2023-04-07 18:06 | XR ---
EXAMINATION TYPE: XR chest 1V portable DATE OF EXAM: 04/07/2023 COMPARISON: 08/28/2015 HISTORY: Altered mental status and difficulty breathing TECHNIQUE: Single frontal view of the chest is obtained. FINDINGS: There is no airspace/consolidative opacity. There is been interval development of focal area of mild linear/reticular opacity in the right lung base likely indicating mild chronic interstitial change. There is no pleural effusion or pneumothorax. Heart and pulmonary vasculature are normal. The osseous structures are intact. IMPRESSION: IMPRESSION: 1. No acute cardiopulmonary disease. 2. Interval development of mild chronic interstitial changes in the right lung base.
[2023-04-07] MEDS ORDERED: LABETALOL 5 MG/ML VIAL MDV IVP PRN (18:36)
[2023-04-07] MEDS ORDERED: DOCUSATE 100 MG CAP PO PRN (18:40)
[2023-04-07] MEDS ORDERED: ONDANSETRON 4 MG TAB PO PRN (18:40)
[2023-04-07] MEDS: SODIUM CHLORIDE 0.9% 1,000 ML IV SCH (18:49)
[2023-04-07] MEDS: HYDROcodone/APAP 7.5-325MG 1 EACH TAB PO PRN (22:24)
--- NOTE | 2023-04-08 01:53 | P.CNPUL ---
History of Present Illness Consult date: 04/08/23 Requesting physician: Khoi Byrd Reason for consult: other (Suspected acute ischemic CVA) Chief complaint: Altered mental status, expressive aphasia, and right upper extremity weakne History of present illness: I am seeing this patient in new consultation today April 08, 2023 in the emergency room after she presented yesterday evening with CVA-like symptoms. She did receive tenecteplase, and will require monitoring in the intensive care unit. Patient is a 77-year-old white female with past medical history significant for hypertension, hyperlipidemia, and recent right total knee rep lacement 1 week ago. Patient is currently in emergency room #4. Her is at bedside, and provides most of this information. Patient's states that he dropped her off at physical therapy at 11:30 AM yesterday morning. No neurological deficits were noted by him at that time. He was scheduled to pick her up at 3 PM that afternoon, however, she did not message him or come out to the car. He decided to go into the facility, he noted that she was somewhat confused. When they got home, she was having trouble speaking. She could not tell him that she wanted her glasses. Patient was brought in the emergency room at 1625. Brain CT and brain CTA were both negative for any acute findings. She was suspected to have an acute ischemic stroke, NIH was initially scored at 9. Neurointerventionalist felt the patient would benefit from thrombolytics. Patient received tenecteplase at 1730. On my evaluation, the patient still has significant expressive dysphasia. She also has a right-sided facial droop. Right upper extremities are now equal. Unable to assess right lower extremity due to recent right total knee replacement. CBC on arrival was unremarkable. BMP on arrival also benign. ECG consistent with normal sinus rhythm and nonspecific ST-T wave abnormalities. Troponins less than 0.012, less than 0.012, 0.016. Blood pressure has been controlled. She does have a low-grade temperature of 100.7 F. No obvious signs of medication reaction. Vital signs are stable. Review of Systems REVIEW OF SYSTEMS: CONSTITUTIONAL: Denies any recent significant weight loss or weight gain. EYES: Denies change in vision. EARS, NOSE, MOUTH, THROAT: Denies headaches, denies sore throat. CARDIOVASCULAR: Denies chest pain, palpitations or syncopal episodes. RESPIRATORY: Denies shortness of breath, cough, congestion or hemoptysis. GASTROINTESTINAL: Denies change in appetite, abdominal pain, nausea and vomiting, or diarrhea GENITOURINARY: Denies hematuria, denies infections. MUSKULOSKELETAL: Denies pain, denies swelling. INTEGUMENTARY: Denies rash, denies eczema. Does report some right knee incisional pain. NEUROLOGICAL: Denies recent memory loss, no recent seizure activity. PSYCHIATRIC: Denies anxiety, denies depression. HEMATOLOGIC/LYMPHATIC: Denies anemia, denies enlarged lymph node Past Medical History Past Medical History: Hypertension History of Any Multi-Drug Resistant Organisms: None Reported Past Surgical History: Hysterectomy, Orthopedic Surgery Additional Past Surgical History / Comment(s): Knee surgery, left surgery surgery. Past Anesthesia/Blood Transfusion Reactions: No Reported Reaction Past Psychological History: No Psychological Hx Reported Smoking Status: Former smoker Past Alcohol Use History: Daily Past Drug Use History: None Reported - Past Family History Mother Family Medical History: No Reported History Medications and Allergies Home Medications Medication Instructions Recorded Confirmed Type lisinopriL [Prinivil] 10 mg PO DAILY 12/10/19 04/07/23 History Aspirin 81 mg PO BID 04/07/23 04/07/23 History Docusate [Colace] 100 mg PO BID PRN 04/07/23 04/07/23 History HYDROcodone/APAP 7.5-325MG [[place] 1 tab PO Q4H PRN 04/07/23 04/07/23 History 7.5-325] Ondansetron [Zofran] 4 mg PO Q8H PRN 04/07/23 04/07/23 History Allergies Allergy/AdvReac Type Severity Reaction Status Date / Time No Known Allergies Allergy Verified 04/07/23 18:18 Physical Exam Vitals: Vital Signs Temp Pulse Resp BP Pulse Ox 04/07/23 21:42 90 18 118/65 99 04/07/23 18:00 75 18 142/55 98 04/07/23 17:20 50 L 34 H 130/97 91 L 04/07/23 17:05 92 32 H 114/104 04/07/23 17:02 51 L 28 H 151/103 95 04/07/23 16:50 28 H 124/68 04/07/23 16:35 34 H 139/87 04/07/23 16:30 97.5 F L 90 26 H 120/58 98 Intake and Output 04/07/23 04/07/23 04/08/23 14:59 22:59 06:59 Other: Weight 58.967 kg GENERAL EXAM: Alert, 77-year-old white female, fairly comfortable in no apparent distress. HEAD: Normocephalic and atraumatic EYES: Normal reaction of pupils, equal size. NOSE: Clear with pink turbinates. THROAT: No erythema or exudates. NECK: No masses, no JVD. CHEST: No chest wall deformity. LUNGS: Equal air entry with no crackles, wheeze, rhonchi or dullness. On room air. No conversational dyspnea or accessory muscle use.. CVS: S1 and S2 normal with no audible murmur, regular rhythm. No extra heart sounds ABDOMEN: No hepatosplenomegaly, active bowel sounds, no guarding or rigidity. SPINE: No scoliosis or deformity SKIN: No rashes CENTRAL NERVOUS SYSTEM: Patient is alert. She follows commands appropriately. She answers orientation questions incorrectly. There is significant expressive dysphasia. She has difficulty identifying and expressing objects in the room. No obvious visual deficits were noted. Peripheral vision appears intact. There is mild flattening of the right nasolabial fold. Bilateral upper extremities have good strength 5/5. Right lower extremity is postsurgical and was not scored. Left lower extremity has good strength. Sensation is intact bilaterally and throughout. No obvious ataxia. No neglect. EXTREMITIES: There is no peripheral edema, clubbing, or cyanosis. Peripheral pulses are intact. Results - Laboratory Findings CBC and BMP: 04/07/23 16:47 04/07/23 16:47 PT/INR, D-dimer PT 10.5 sec (10.0-12.5) 04/07/23 16:47 INR 0.9 (<1.2) 04/07/23 16:47 Abnormal lab findings: Abnormal Labs 04/07/23 04/07/23 16:47 16:47 APTT 20.4 L Sodium 133 L Carbon Dioxide 18 L BUN 24 H Glucose 102 H Total Bilirubin 1.4 H - Diagnostic Findings Chest x-ray: image reviewed Assessment and Plan Assessment: Suspected acute ischemic stroke, status post thrombolytics. Brain CT on arrival was negative for any intracranial hemorrhage or mass effect. Brain CTA did not show any significant flow-limiting stenosis, occlusions, or aneurysms throughout the bilateral carotid arteries.. Severe expressive dysphasia Right facial weakness History of hypertension Former tobacco smoker Recent right knee total arthroplasty Plan: Patient's medications, labs, imaging reviewed. Patient is status/post tenecteplase infusion. Blood pressure stable. As needed IVP labetalol ordered for blood pressures greater than 185/110. Echocardiogram pending to rule out cardioembolic phenomenon 24-hour follow-up brain CT pending. Suspect antiplatelet medication to follow. Antihyperlipidemics to be initiated. Neurology has been consulted. Speech consult was placed to assess swallow PT/OT were added Prognosis is guarded. Patient's is at bedside, and reports some improvement since administration of thrombolytics. Patient still has significant expressive dysphasia and mild right facial weakness. Her right upper extremity weakness appears to have resolved. Patient will be monitored in the intensive care unit once bed available, and for a least 24 hours post TPA infusion. I have personally seen and examined the patient, performed the documentation and the assessment and plan as written. Number of minutes spent on the visit: 20 Time with Patient: Greater than 30
[2023-04-08 08:05] LABS: Glucose,Whole Blood 134 mg/dL (70-110)
[2023-04-08] MEDS: lisinopriL 10 MG TAB PO SCH (09:53)
[2023-04-08] MEDS: PANTOPRAZOLE 40 MG/10 ML VIAL IVP SCH (10:14)
[2023-04-08 10:23] LABS: Basophils % (A) 0 %; Eosinophils % (A) 0 %; HCT 28.9 % (34.0-46.0); Lymphocytes % (A) 14 %; MCV 91.2 fL (80.0-100.0); Mean Platelet Volume 7.6; Monocytes # (A) 0.7 k/uL (0-1.0); Monocytes % (A) 10 %; Neutrophils # (A) 5.4 k/uL (1.3-7.7); Neutrophils % (A) 74 %; Platelet Count 273 k/uL (150-450); RBC 3.17 m/uL (3.80-5.40); RDW 12.5 % (11.5-15.5); WBC 7.3 k/uL (3.8-10.6)
[2023-04-08 10:33] LABS: African American GFR (CKD) 90 (>60 ml/min/1.73 sqM); Anion Gap 7 mmol/L; Blood Urea Nitrogen 20 mg/dL (7-17); Calcium 8.7 mg/dL (8.4-10.2); Carbon Dioxide 22 mmol/L (22-30); Chloride 106 mmol/L (98-107); Glucose 119 mg/dL (74-99); Non-African American GFR(CKD) 78 (>60 ml/min/1.73 sqM); Potassium 3.6 mmol/L (3.5-5.1); Sodium 135 mmol/L (137-145)
[2023-04-08 10:39] LABS: HGB 9.8 gm/dL (11.4-16.0)
[2023-04-08 10:58] LABS: Chol/HDL Ratio 2.69 Ratio; LDL Cholesterol,Calculated 82.4 mg/dL (0.0-131.0); VLDL Calculation 12.96 mg/dL (5.00-40.00)
[2023-04-08] MEDS ORDERED: Potassium Replacement Protocol 1 EACH MISC MISCELLANE PRN (11:26)
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
[2023-04-08] MEDS: ATORVASTATIN 40 MG TAB PO SCH (12:06)
[2023-04-08] MEDS: POTASSIUM CHLORIDE ER 20 MEQ TAB.ER PO SCH (12:06)
--- NOTE | 2023-04-08 12:17 | CA ---
Transthoracic Echo Report Name: Ira Rhoades Age: 77 Gender: F : 1945 Exam Date: 04/08/2023 08:16 Exam Location: [place] [facility] Echo Ht (in): 66 Wt (lb): 130 Ordering Physician: Johnny Morrison Attending/Referring Phys: Rotoprinter Yesi Rosenthal RDCS Procedure CPT: Indications: suspected acute ischemic CVA Cardiac Hx: Technical Quality: Fair Contrast 1: Total Dose (mL): Contrast 2: Total Dose (mL): MEASUREMENTS (Male / Female) Normal Values 2D ECHO LV Diastolic Diameter PLAX 4.0 cm 4.2 - 5.9 / 3.9 - 5.3 cm LV Systolic Diameter PLAX 3.1 cm IVS Diastolic Thickness 1.0 cm 0.6 - 1.0 / 0.6 - 0.9 cm LVPW Diastolic Thickness 1.0 cm 0.6 - 1.0 / 0.6 - 0.9 cm LV Relative Wall Thickness 0.5 RV Internal Dim ED PLAX 2.5 cm LA Systolic Diameter LX 3.6 cm 3.0 - 4.0 / 2.7 - 3.8 cm LV Diastolic Volume MOD 4C 91.2 cm??? LV Systolic Volume MOD 4C 44.7 cm??? LV Ejection Fraction MOD 4C 51.0 % LV Cardiac Index MOD 4C 2667.8 cm???/min???m??? LV Diastolic Length 4C 7.3 cm LV Systolic Length 4C 6.1 cm LV Diastolic Volume MOD 2C 84.7 cm??? LV Systolic Volume MOD 2C 41.3 cm??? LV Ejection Fraction MOD 2C 51.2 % LV Cardiac Index MOD 2C 2489.6 cm???/min???m??? LV Diastolic Length 2C 7.6 cm LV Systolic Length 2C 6.1 cm LA Volume 36.0 cm??? 18 - 58 / 22 - 52 cm??? LA Volume Index 21.8 cm???/m??? 16 - 28 cm???/m??? M-MODE Aortic Root Diameter MM 3.1 cm MV E Point Septal Separation 0.4 cm DOPPLER AV Peak Velocity 135.7 cm/s AV Peak Gradient 7.4 mmHg MV Area PHT 3.4 cm??? Mitral E Point Velocity 88.0 cm/s Mitral A Point Velocity 63.2 cm/s Mitral E to A Ratio 1.4 MV Deceleration Time 225.4 ms MV E' Velocity 10.2 cm/s Mitral E to MV E' Ratio 8.6 TR Peak Velocity 214.9 cm/s TR Peak Gradient 18.5 mmHg Right Ventricular Systolic Press 23.5 mmHg FINDINGS Left Ventricle Left ventricular ejection fraction is estimated at 55-60 %. Left ventricular cavity size normal. Left ventricular wall thickness normal. Right Ventricle Normal right ventricular size. Right ventricular systolic pressure within normal limits. Right Atrium Normal right atrial size. Left Atrium Normal left atrial size. Mitral Valve Structurally normal mitral valve. No mitral stenosis, regurgitation or prolapse. Aortic Valve Trileaflet aortic valve. No aortic valve stenosis or regurgitation. Tricuspid Valve Structurally normal tricuspid valve. Mild tricuspid regurgitation. Pulmonic Valve Pulmonic valve not well visualized. Pericardium No pericardial effusion. Aorta Normal size aortic root and proximal ascending aorta. CONCLUSIONS Technically difficult study for interpretation Normal LV systolic function Previewed by: Dr. Mitul Cristina MD (Electronically Signed) Final Date: 08 April 2023 12:16
--- NOTE | 2023-04-08 15:46 | MR ---
EXAMINATION TYPE: MR brain wo con DATE OF EXAM: 04/08/2023 COMPARISON: 04/07/2023 HISTORY: Acute CVA, status post TNK CONTRAST: Performed utilizing 0 mL intravenous Gadobutrol gadolinium contrast. TECHNIQUE: Multiplanar, multiecho imaging on a 3.0 Latasha magnet is performed through the brain. Stud y is performed within 24 hours of arrival to the hospital. The craniovertebral junction is normal. The pituitary is normal. Diffusion-weighted imaging is performed. No abnormal hyperintensity is present to suggest an acute i ntracranial infarct or acute ischemic change. No suspicious signal abnormality within the brain is evident. Ventricles and sulci are mildly prominent for the patient age. IMPRESSION: 1. Mild age-related atrophy. 2. No suspicious acute intracranial changes to suggest acute ischemic change or infarct.
[2023-04-08] MEDS: POTASSIUM CHLORIDE 20 MEQ in WATER FOR INJECTION 1 100ML.BAG IVPB STA (15:48)
--- NOTE | 2023-04-08 17:53 | P.CNOR ---
History of Present Illness - [facility] Consult date: 04/08/23 Consult reason: other History of present illness: Patient is a pleasant 77 yo female seen at bedside this am. She is known to us as being 1 week post op from Right TKA. She was admitted through the last evening after showing signs and symptoms consistent with a stroke. She presented with expressive aphasia with facial and one sided weakness. She is much improved at bedside this morning with speaking and providing history. She has no other or new complaints. Review of Systems All systems: negative Constitutional: Denies chills, Denies fever Eyes: denies blurred vision, denies pain Ears, nose, mouth and throat: Denies headache, Denies sore throat Cardiovascular: Denies chest pain, Denies shortness of breath Respiratory: Denies cough Gastrointestinal: Denies abdominal pain, Denies diarrhea, Denies nausea, Denies vomiting Genitourinary: Denies dysuria, Denies hematuria Musculoskeletal: Denies myalgias Integumentary: Denies pruritus, Denies rash Neurological: Denies numbness, Denies weakness Psychiatric: Denies anxiety, Denies depression Endocrine: Denies fatigue, Denies weight change Past Medical History Past Medical History: Hypertension History of Any Multi-Drug Resistant Organisms: None Reported Past Surgical History: Hysterectomy, Orthopedic Surgery Additional Past Surgical History / Comment(s): Knee surgery, left surgery surgery. Past Anesthesia/Blood Transfusion Reactions: No Reported Reaction Past Psychological History: No Psychological Hx Reported Smoking Status: Former smoker Past Alcohol Use History: Daily Past Drug Use History: None Reported - Past Family History Mother Family Medical History: No Reported History Medications and Allergies Home Medications Medication Instructions Recorded Confirmed Type lisinopriL [Prinivil] 10 mg PO DAILY 12/10/19 04/07/23 History Aspirin 81 mg PO BID 04/07/23 04/07/23 History Docusate [Colace] 100 mg PO BID PRN 04/07/23 04/07/23 History HYDROcodone/APAP 7.5-325MG [[place] 1 tab PO Q4H PRN 04/07/23 04/07/23 History 7.5-325] Ondansetron [Zofran] 4 mg PO Q8H PRN 04/07/23 04/07/23 History Allergies Allergy/AdvReac Type Severity Reaction Status Date / Time No Known Allergies Allergy Verified 04/07/23 18:18 Physical Examination Inspection reveals a benign surgical wound. There is no active bleeding or drainage. Neurovascular status is intact throughout the lower extremity with motor and sensation fully intact. Calf is soft and nontender. 2+ dorsalis pedis pulse and less than 2 second cap refill is present. Results - Labs Labs: Abnormal Lab Results - Last 24 Hours (Table) 04/07/23 04/07/23 04/08/23 Range/Units 16:47 16:47 08:04 RBC (3.80-5.40) m/uL Hgb (11.4-16.0) gm/dL Hct (34.0-46.0) % APTT 20.4 L (22.0-30.0) sec Sodium 133 L (137-145) mmol/L Carbon Dioxide 18 L (22-30) mmol/L BUN 24 H (7-17) mg/dL Glucose 102 H (74-99) mg/dL POC Glucose (mg/dL) 134 H (70-110) mg/dL Total Bilirubin 1.4 H (0.2-1.3) mg/dL 04/08/23 04/08/23 Range/Units 10:08 10:08 RBC 3.17 L (3.80-5.40) m/uL Hgb 9.8 L D (11.4-16.0) gm/dL Hct 28.9 L (34.0-46.0) % APTT (22.0-30.0) sec Sodium 135 L (137-145) mmol/L Carbon Dioxide (22-30) mmol/L BUN 20 H (7-17) mg/dL Glucose 119 H (74-99) mg/dL POC Glucose (mg/dL) (70-110) mg/dL Total Bilirubin (0.2-1.3) mg/dL H & H 04/07/23 04/08/23 Range/Units 16:47 10:08 Hgb 12.2 9.8 L D (11.4-16.0) gm/dL Hct 36.2 28.9 L (34.0-46.0) % Coagulation 04/07/23 Range/Units 16:47 INR 0.9 (<1.2) Result Diagrams: 04/08/23 10:08 04/08/23 10:08 Assessment and Plan (1) S/P total knee arthroplasty Narrative/Plan: Continue DVT prophylaxis, pain management, and PT. Defer primary treatment and workup to primary team, neuro etc. She is stable in regards to her TKA and from orthopedic standpoint she may follow up as outpatient. Thank you Current Visit: Yes Status: Acute Priority: Medium Code(s): Z96.659 - PRESENCE OF UNSPECIFIED ARTIFICIAL KNEE JOINT SNOMED Code(s): 2866758008600 Time with Patient: Less than 30
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
[2023-04-09 08:42] LABS: African American GFR (CKD) >90 (>60 ml/min/1.73 sqM); Anion Gap 6 mmol/L; Blood Urea Nitrogen 15 mg/dL (7-17); Calcium 8.4 mg/dL (8.4-10.2); Carbon Dioxide 21 mmol/L (22-30); Chloride 107 mmol/L (98-107); Glucose 107 mg/dL (74-99); Non-African American GFR(CKD) 85 (>60 ml/min/1.73 sqM); Potassium 3.9 mmol/L (3.5-5.1); Sodium 134 mmol/L (137-145)
--- NOTE | 2023-04-09 13:31 | P.PN ---
Subjective Progress Note Date: 04/09/23 Principal diagnosis: Acute CVA status post tenecteplase infusion. I am seeing this patient in new consultation today April 08, 2023 in the emergency room after she presented yesterday evening with CVA-like symptoms. She did receive tenecteplase, and will require monitoring in the intensive care unit. Patient is a 77-year-old white female with past medical history signific ant for hypertension, hyperlipidemia, and recent right total knee replacement 1 week ago. Patient is currently in emergency room #4. Her is at bedside, and provides most of this information. Patient's states that he dropped her off at physical therapy at 11:30 AM yesterday morning. No neurological deficits were noted by him at that time. He was scheduled to pick her up at 3 PM that afternoon, however, she did not message him or come out to the car. He decided to go into the facility, he noted that she was somewhat confused. When they got home, she was having trouble speaking. She could not tell him that she wanted her glasses. Patient was brought in the emergency room at 1625. Brain CT and brain CTA were both negative for any acute findings. She was suspected to have an acute ischemic stroke, NIH was initially scored at 9. Neurointerventionalist felt the patient would benefit from thrombolytics. Patient received tenecteplase at 1730. On my evaluation, the patient still has significant expressive dysphasia. She also has a right-sided facial droop. Right upper extremities are now equal. Unable to assess right lower extremity due to recent right total knee replacement. CBC on arrival was unremarkable. BMP on arrival also benign. ECG consistent with normal sinus rhythm and nonspecific ST-T wave abnormalities. Troponins less than 0.012, less than 0.012, 0.016. Blood pressure has been controlled. She does have a low-grade temperature of 100.7 F. No obvious signs of medication reaction. Vital signs are stable. Patient was reevaluated today on 04/09/2023, I saw this patient in the ICU yesterday, patient is status post tenecteplase infusion for acute ischemic CVA. Patient presented mostly with expressive dysphasia, feeling much better, appears back to normal, no issues related to her speech, and no issues related to her weakness. Brain MRI yesterday was normal The patient is doing great. No focal neurologic deficit. Patient is to be seen again by neurology, and will decide on discharge planning or if there is any need for any further workup. CBC is normal basic metabolic profile is normal renal profile is normal Objective - Vital Signs Vital signs: Vital Signs Temp 98.2 F 04/09/23 12:00 Pulse 70 04/09/23 12:00 Resp 18 04/09/23 12:00 BP 109/62 04/09/23 12:00 Pulse Ox 97 04/09/23 12:00 FiO2 Intake & Output 04/08/23 04/09/23 04/09/23 18:59 06:59 18:59 Intake Total 420 110 Output Total 400 Balance 20 110 Weight 58.967 kg Intake: IV 160 Sodium Chloride 0.9% 1, 160 000 ml @ 20 mls/hr IV . Q24H JAMISON Rx#:[id number] Oral 260 110 Output: Urine 400 Other: Voiding Method Bedpan Toilet Toilet Bedpan Bedpan # Voids 1 - Exam General: The patient is awake and alert, in no distress, and does not appear acutely ill. Skin: Skin is warm and dry and no rashes or lesions are noted. Eye: Pupils are equal, round and reactive to light, extra-ocular movements are intact; there is normal conjunctiva bilaterally. Ears, nose, mouth and throat: There are moist mucous membranes and no oral lesions. Neck: The neck is supple, there is no tenderness or JVD. Cardiovascular: There is a regular rate and rhythm. No murmur, rub or gallop is appreciated. Respiratory: Air bilaterally no crackles rhonchi or wheezes Gastrointestinal: Soft, non-distended, non-tender abdomen without masses or organomegaly noted. There is no rebound or guarding present. Bowel sounds are unremarkable. Back: There is no tenderness to palpation in the midline. There is no obvious deformity. Musculoskeletal: Normal ROM, no tenderness, recent surgical changes noted in right knee related to recent arthroplasty Neurological: CN II-XII intact, Cranial nerves III through XII are intact. Nonfocal. Psychiatric: Cooperative, appropriate mood & affect, normal judgment. - Labs CBC & Chem 7: 04/08/23 10:08 04/09/23 07:48 Labs: Abnormal Lab Results - Last 24 Hours (Table) 04/09/23 Range/Units 07:48 Sodium 134 L (137-145) mmol/L Carbon Dioxide 21 L (22-30) mmol/L Glucose 107 H (74-99) mg/dL Assessment and Plan Assessment: Impression: acute ischemic stroke, status post thrombolytics. Severe expressive dysphasia, resolved Right facial weakness, resolved History of hypertension Former tobacco smoker Recent right knee total arthroplasty Recommendation: Continue present supportive care measures Continue statins MRI of the brain was reviewed, basically normal. Need to monitor blood pressure and address accordingly Continue DVT prophylaxis. Neurology to decide on anticoagulation therapy/antiplatelet therapy on outpatient basis Neurology to clear the patient for discharge when felt appropriate. Time with Patient: Less than 30
--- NOTE | 2023-04-09 15:24 | P.PN ---
Subjective Progress Note Date: 04/09/23 Patient was seen for a follow-up. Patient denies any symptoms. All symptoms have resolved. Objective - Vital Signs Vital signs: Vital Signs Temp 98.2 F 04/09/23 12:00 Pulse 70 04/09/23 12:00 Resp 18 04/09/23 12:00 BP 109/62 04/09/23 12:00 Pulse Ox 97 04/09/23 12:00 FiO2 Intake & Output 04/08/23 04/09/23 04/09/23 18:59 06:59 18:59 Intake Total 420 220 Output Total 400 Balance 20 220 Weight 58.967 kg Intake: IV 160 Sodium Chloride 0.9% 1, 160 000 ml @ 20 mls/hr IV . Q24H JAMISON Rx#:[id number] Oral 260 220 Output: Urine 400 Other: Voiding Method Bedpan Toilet Toilet Bedpan Bedpan # Voids 1 - Exam Patient's examination is completely normal. Fascial droopiness, is her baseline. Patient has been believes that she is back to normal. - Labs CBC & Chem 7: 04/08/23 10:08 04/09/23 07:48 Labs: Abnormal Lab Results - Last 24 Hours (Table) 04/09/23 Range/Units 07:48 Sodium 134 L (137-145) mmol/L Carbon Dioxide 21 L (22-30) mmol/L Glucose 107 H (74-99) mg/dL Assessment and Plan Assessment: * Stroke/TIA, presenting with significant expressive aphasia, status post tenecteplase (TNK). Her symptoms have resolved, her NIH stroke scale is 0. 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 * Status post right knee arthroplasty * Ex tobacco use Plan: MRI of the brain without contrast, revealed mild age-related atrophic changes. No acute or subacute infarct. I personally reviewed MRI agree with the findings. 2-D echo revealed technically difficult study for interpretation. Normal right ventricular systolic function with EF 55 to 60%. Normal left ventricular wall thickness. Normal left atrial size. No valvular abnormalities. CTA head and neck showed: No significant abnormality. No sizable aneurysm, vascular malformation, stenosis or segmental occlusion. Patient's previous MRA of the brain showed left vertebral artery aneurysm, although CTA did not reveal any. I reviewed her CTA with Dr. Rivera, and also with Dr. Blackburn. It appears the current study is very poor study, and the aneurysm is not visualized in the current CTA. The aneurysm mainly originates from the left PICA (not the PCOM or vertebral artery) as per Dr. Rivera review of the images. Fasting a.m. lipid panel with cholesterol 152, LDL 82, HDL 56, triglycerides 64. Agree with starting Lipitor 40 mg at bedtime. Hemoglobin A1c 5.5. Optimize control of blood pressure to normotensive level. Patient to resume aspirin. We will give 324 mg stat, and then 81 mg daily. Neuro checks as per protocol. Telemetry monitoring so far showing sinus rhythm in the 70s. No other arrhythmia. PT, OT, speech therapy EEG was performed, which was abnormal due to intermittent left temporal focal slowing and dysrhythmic delta and theta range, suggestive of focal cortical neuronal dysfunction. This may be related to her stroke/TIA. No epileptiform activity was seen. Patient has developed anemia, with hemoglobin 9.8, whereas hemoglobin was 12.2 yesterday. Patient denies any GI bleed. Patient did have bowel movement today. We will repeat CBC. If stable, will be clear for discharge. Recommend patient follow-up with neurologist in 2 to 4 weeks.
[2023-04-09 16:06] LABS: Basophils % (A) 0 %; Eosinophils # (A) 0.1 k/uL (0-0.7); Eosinophils % (A) 1 %; HCT 26.5 % (34.0-46.0); HGB 9.1 gm/dL (11.4-16.0); Lymphocytes # (A) 0.9 k/uL (1.0-4.8); Lymphocytes % (A) 12 %; MCH 31.6 pg (25.0-35.0); MCHC 34.1 g/dL (31.0-37.0); MCV 92.5 fL (80.0-100.0); Mean Platelet Volume 7.6; Monocytes # (A) 0.7 k/uL (0-1.0); Monocytes % (A) 10 %; Neutrophils # (A) 5.7 k/uL (1.3-7.7); Neutrophils % (A) 75 %; Platelet Count 262 k/uL (150-450); RBC 2.87 m/uL (3.80-5.40); RDW 12.4 % (11.5-15.5); WBC 7.6 k/uL (3.8-10.6)
[2023-04-09] MEDS: ASPIRIN 81 MG PO STA (17:12)
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
--- NOTE | 2023-04-09 22:31 | EEG ---
ELECTROENCEPHALOGRAM REPORT PREAMBLE: This is a 77-year-old female, who presented with acute aphasia. MRI of the brain was negative for any acute stroke. This study is performed to rule out any epileptiform activity. EEG FINDINGS: This is a 21-channel digital EEG recorded with video component, utilizing 10/20 international system with referential and bipolar montages. Background consists of well-developed, well-regulated moderate voltage activity in 9-10 hertz alpha. Background is posterior dominant and reactive to eye opening and closing. Photic driving response was seen with some few flash frequencies. Intermittent, sporadic left temporal dysrhythmic theta or delta slowing was seen in the left temporal region. Drowsiness was seen with appearance of bilaterally symmetric theta frequency rhythm. Stage 2 sleep was attained with presence of sleep spindles and vertex waves. No definitive focal or generalized epileptiform activity was seen. IMPRESSION: This is an abnormal EEG due to intermittent left temporal slowing, suggestive of focal cortical neuronal dysfunction. No definitive epileptiform activity was seen. MMODL / IJN: [id number] /
--- NOTE | 2023-04-10 06:33 | CDI ---
Documentation Clarification Form Date: 04/10/2023 06:03:10 AM From: Mallika Burr RN, CCDS Phone: [phone] Admit Date: 04/07/2023 06:40:00 PM Patient Name: Ira Rhoades Visit Number: [id number] Discharge Date: ATTENTION: The Clinical Documentation Specialists (CDI) and [facility] Coding Staff appreciate your assistance in clarifying documentation. Please respond to the clarification below the line at the bottom and electronically sign. The CDI & [facility] Coding staff will review the response and follow-up if needed. Please note: Queries are made part of the Legal Health Record. If you have any questions, please contact the author of this message via ITS. Dr. Hilda Barreto Conflicting documentation has been found in the medical record. As attending physician, please provide clarification. Stroke/TIA documented in the neurology progress on 04/09/23. Possible acute CVA in the attending progress notes on 04/09/23. 04/09 Neurology progress note: Stroke/TIA, presenting with significant expressive aphasia, EEG was performed, which was abnormal due to intermittent left temporal focal slowing and dysrhythmic delta and theta range, suggestive of focal cortical neuronal dysfunction. This may be related to her stroke/TIA. No epileptiform activity was seen. History/Risk Factors: Hypertension, Knee surgery, Former smoker, Daily Alcohol use Clinical Indicators: 77yo presented with possible stroke acute expressive aphasia, TPA in ER, TKA x1wk ago. Pt has h/o Left vert saccular aneurysm at PCOM origin. 04/07 VS: 120/58 90 26 75.5 98% RA 04/07 Lab: WBC 8.7, Na+ 133, C0218, BUN 24 CR 0.80 04/07CT Brain No intracranial hemorrhage 04/08 MRI: Atrophy, No suspicious acute intracranial changes to suggest acute ischemic change or infarct. 04/09 EEG: This is an abnormal EEG due to intermittent left temporal slowing, suggestive of focal cortical neuronal dysfunction. No definitive epileptiform activity was seen. Treatment: ICU/Telemetry Monitoring Tenecteplase PT/OT consult Speech consult NIH assessment Stroke orders Please clarify which diagnosis is most appropriate: [ ] CVA ruled in and treated [ ] CVA ruled out [ ] Other (please specify) [ ] Unable to determine (Template Last Revised: May 2020) MTDD
[2023-04-10 07:42] LABS: HCT 29.2 % (34.0-46.0); HGB 9.7 gm/dL (11.4-16.0); MCHC 33.3 g/dL (31.0-37.0); MCV 93.1 fL (80.0-100.0); Mean Platelet Volume 7.6; Platelet Count 302 k/uL (150-450); RBC 3.14 m/uL (3.80-5.40); RDW 12.5 % (11.5-15.5); WBC 6.6 k/uL (3.8-10.6)
[2023-04-10] MEDS: ASPIRIN 81 MG PO SCH (09:33)
[2023-04-10 11:45] VITALS: BP 92/60; PULSE 80; RESP 18; TEMP 98.4
--- NOTE | 2023-04-10 16:56 | P.PN ---
Subjective Progress Note Date: 04/10/23 Principal diagnosis: Acute CVA status post tenecteplase infusion. I am seeing this patient in new consultation today April 08, 2023 in the emergency room after she presented yesterday evening with CVA-like symptoms. She did receive tenecteplase, and will require monitoring in the intensive care unit. Patient is a 77-year-old white female with past medical history signific ant for hypertension, hyperlipidemia, and recent right total knee replacement 1 week ago. Patient is currently in emergency room #4. Her is at bedside, and provides most of this information. Patient's states that he dropped her off at physical therapy at 11:30 AM yesterday morning. No neurological deficits were noted by him at that time. He was scheduled to pick her up at 3 PM that afternoon, however, she did not message him or come out to the car. He decided to go into the facility, he noted that she was somewhat confused. When they got home, she was having trouble speaking. She could not tell him that she wanted her glasses. Patient was brought in the emergency room at 1625. Brain CT and brain CTA were both negative for any acute findings. She was suspected to have an acute ischemic stroke, NIH was initially scored at 9. Neurointerventionalist felt the patient would benefit from thrombolytics. Patient received tenecteplase at 1730. On my evaluation, the patient still has significant expressive dysphasia. She also has a right-sided facial droop. Right upper extremities are now equal. Unable to assess right lower extremity due to recent right total knee replacement. CBC on arrival was unremarkable. BMP on arrival also benign. ECG consistent with normal sinus rhythm and nonspecific ST-T wave abnormalities. Troponins less than 0.012, less than 0.012, 0.016. Blood pressure has been controlled. She does have a low-grade temperature of 100.7 F. No obvious signs of medication reaction. Vital signs are stable. Patient was reevaluated today on 04/09/2023, I saw this patient in the ICU yesterday, patient is status post tenecteplase infusion for acute ischemic CVA. Patient presented mostly with expressive dysphasia, feeling much better, appears back to normal, no issues related to her speech, and no issues related to her weakness. Brain MRI yesterday was normal The patient is doing great. No focal neurologic deficit. Patient is to be seen again by neurology, and will decide on discharge planning or if there is any need for any further workup. CBC is normal basic metabolic profile is normal renal profile is normal Patient was reevaluated today on 04/10/2023, patient is doing well, asymptomatic, her neurological deficit has completely resolved, patient would likely be cleared for discharge home today by urology. Objective - Vital Signs Vital signs: Vital Signs Temp 98.4 F 04/10/23 11:35 Pulse 80 04/10/23 11:35 Resp 18 04/10/23 11:35 BP 92/60 04/10/23 11:35 Pulse Ox 99 04/10/23 11:35 FiO2 Intake & Output 04/09/23 04/10/23 04/10/23 18:59 06:59 18:59 Intake Total 220 180 236 Output Total 200 Balance 220 -20 236 Intake: Oral 220 180 236 Output: Urine 200 Other: Voiding Method Toilet Toilet Toilet Bedpan Bedpan - Exam General: The patient is awake and alert, in no distress, and does not appear acutely ill. Skin: Skin is warm and dry and no rashes or lesions are noted. Eye: Pupils are equal, round and reactive to light, extra-ocular movements are intact; there is normal conjunctiva bilaterally. Ears, nose, mouth and throat: There are moist mucous membranes and no oral lesions. Neck: The neck is supple, there is no tenderness or JVD. Cardiovascular: There is a regular rate and rhythm. No murmur, rub or gallop is appreciated. Respiratory: Air bilaterally no crackles rhonchi or wheezes Gastrointestinal: Soft, non-distended, non-tender abdomen without masses or organomegaly noted. There is no rebound or guarding present. Bowel sounds are unremarkable. Back: There is no tenderness to palpation in the midline. There is no obvious deformity. Musculoskeletal: Normal ROM, no tenderness, recent surgical changes noted in right knee related to recent arthroplasty Neurological: CN II-XII intact, Cranial nerves III through XII are intact. Nonfocal. Psychiatric: Cooperative, appropriate mood & affect, normal judgment. - Labs CBC & Chem 7: 04/10/23 07:29 04/09/23 07:48 Labs: Abnormal Lab Results - Last 24 Hours (Table) 04/10/23 Range/Units 07:29 RBC 3.14 L (3.80-5.40) m/uL Hgb 9.7 L (11.4-16.0) gm/dL Hct 29.2 L (34.0-46.0) % Assessment and Plan Assessment: Impression: acute ischemic stroke, status post thrombolytics. Severe expressive dysphasia, resolved Right facial weakness, resolved History of hypertension Former tobacco smoker Recent right knee total arthroplasty Recommendation: Continue present supportive care measures Continue statins Neurology to clear the patient for discharge I am clearing for discharge if cleared by neurology Time with Patient: Less than 30
[2023-04-11] MEDS ORDERED: PANTOPRAZOLE 40 MG TABLET PO SCH (09:00)
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
--- NOTE | 2023-04-23 19:47 | CDI ---
Documentation Clarification Form Date: 04/10/2023 06:03:00 AM From: Mallika Burr RN, CCDS Phone: [phone] Admit Date: 04/2023 06:40:00 PM Patient Name: Ira Rhoades Visit Number: [id number] Discharge Date: 04/10/2023 01:14:00 PM ATTENTION: The Clinical Documentation Specialists (CDI) and [facility] Coding Staff appreciate your assistance in clarifying documentation. Please respond to the clarification below the line at the bottom and electronically sign. The CDI & [facility] Coding staff will review the response and follow-up if needed. Please note: Queries are made part of the Legal Health Record. If you have any questions, please contact the author of this message via ITS. Dr. Hilda Barreto Conflicting documentation has been found in the medical record. As attending physician, please provide clarification. Stroke/TIA documented in the neurology progress on 04/09/23. Possible acute CVA in the attending progress notes on 04/09/23. 04/09 Neurology progress note: Stroke/TIA, presenting with significant expressive aphasia, EEG was performed, which was abnormal due to intermittent left temporal focal slowing and dysrhythmic delta and theta range, suggestive of focal cortical neuronal dysfunction. This may be related to her stroke/TIA. No epileptiform activity was seen. History/Risk Factors: Hypertension, Knee surgery, Former smoker, Daily Alcohol use Clinical Indicators: 77yo presented with possible stroke acute expressive aphasia, TPA in ER, TKA x1wk ago. Pt has h/o Left vert saccular aneurysm at PCOM origin. 04/07 VS: 120/58 90 26 75.5 98% RA 04/07 Lab: WBC 8.7, Na+ 133, C0218, BUN 24 CR 0.80 04/07CT Brain No intracranial hemorrhage 04/08 MRI: Atrophy, No suspicious acute intracranial changes to suggest acute ischemic change or infarct. 04/09 EEG: This is an abnormal EEG due to intermittent left temporal slowing, suggestive of focal cortical neuronal dysfunction. No definitive epileptiform activity was seen. Treatment: ICU/Telemetry Monitoring Tenecteplase PT/OT consult Speech consult NIH assessment Stroke orders Please clarify which diagnosis is most appropriate: [ x ] CVA ruled in and treated [ ] CVA ruled out [ ] Other (please specify) [ ] Unable to determine (Template Last Revised: May 2020) MTDD
== END 2023-04-10 13:14 | disposition home or self-care (01) | DRG 62 ==
LOC: EC 16:25 → 2SICU 18:40 → 3SCARD 04-08 18:26
PROVIDERS: ADMIT Internal Medicine; ATTEND Internal Medicine
DX: I63.9 Cerebral infarction, unspecified (principal); E87.1 Hypo-osmolality and hyponatremia; R47.01 Aphasia; I67.1 Cerebral aneurysm, nonruptured; I11.9 Hypertensive heart disease without heart failure; E86.1 Hypovolemia; Z86.74 Personal history of sudden cardiac arrest; I45.10 Unspecified right bundle-branch block; F10.90 Alcohol use, unspecified, uncomplicated; R29.709 NIHSS score 9; R47.02 Dysphasia; R29.810 Facial weakness; D64.9 Anemia, unspecified; R50.9 Fever, unspecified; E78.5 Hyperlipidemia, unspecified; R13.10 Dysphagia, unspecified; R41.3 Other amnesia; Z96.651 Presence of right artificial knee joint; Z87.891 Personal history of nicotine dependence; Z79.899 Other long term (current) drug therapy; Z79.82 Long term (current) use of aspirin; Z82.3 Family history of stroke
CPT/HCPCS: 70450; 70496; 70498; 70551; 71045; 80048; 80053; 80061; 82550; 83036; 84484; 85025; 85027; 85610; 85730; 93005; 93306; 94760; 95816; 96374; 99285

== ENCOUNTER 2023-04-10 16:36 | Inpatient (IN) | payer MEDICARE ==
--- NOTE | 2023-04-10 16:53 | ED ---
General Adult HPI - General Source: patient, RN notes reviewed Mode of arrival: ambulatory Limitations: no limitations <Meg Woodall - Last Filed: 04/10/23 16:54> <Pramod Pitts - Last Filed: 04/10/23 22:09> - General Chief complaint: Neuro Symptoms/Deficit Stated complaint: R arm and shoulder pain Time Seen by Provider: 04/10/23 16:45 - History of Present Illness Initial comments: This is a 77-year-old female who presents to the emergency department for right arm and shoulder pain. She was discharged from this facility around 1 PM today, and states that after she got home, she realized she could not raise her right arm. She's had right-sided neck pain for the last 3 days, and when she got home, she started to develop pain to her right arm and shoulder, and states that she is having difficulty lifting the arm. States that she did not have this problem when she was discharged and is concerned about another stroke. She is still able to move the arm, but when lifting it all of the way up, it becomes too painful, and she has to put it down. (Meg Woodall) - Related Data Home Medications Medication Instructions Recorded Confirmed lisinopriL [Prinivil] 10 mg PO DAILY 12/10/19 04/10/23 Docusate [Colace] 100 mg PO BID PRN 04/07/23 04/10/23 HYDROcodone/APAP 7.5-325MG [[place] 1 tab PO Q4H PRN 04/07/23 04/10/23 7.5-325] Ondansetron [Zofran] 4 mg PO Q8H PRN 04/07/23 04/10/23 Previous Rx's Medication Instructions Recorded Aspirin 81 mg PO DAILY #30 tab 04/10/23 Atorvastatin [Lipitor] 40 mg PO DAILY #30 tab 04/10/23 Pantoprazole [Protonix] 40 mg PO DAILY #30 tab 04/10/23 Allergies Allergy/AdvReac Type Severity Reaction Status Date / Time No Known Allergies Allergy Verified 04/10/23 18:13 Review of Systems ROS Other: All systems not noted in ROS Statement are negative. <Meg Woodall - Last Filed: 04/10/23 16:54> ROS Other: All systems not noted in ROS Statement are negative. <Pramod Pitts - Last Filed: 04/10/23 22:09> ROS Statement: Those systems with pertinent positive or pertinent negative responses have been documented in the HPI. Past Medical History Past Medical History: Hypertension History of Any Multi-Drug Resistant Organisms: None Reported Past Surgical History: Hysterectomy, Orthopedic Surgery Additional Past Surgical History / Comment(s): Knee surgery, left surgery surgery. Past Anesthesia/Blood Transfusion Reactions: No Reported Reaction Past Psychological History: No Psychological Hx Reported Smoking Status: Former smoker Past Alcohol Use History: Daily Past Drug Use History: None Reported - Past Family History Mother Family Medical History: No Reported History <Meg Woodall - Last Filed: 04/10/23 16:54> General Exam Limitations: no limitations <Meg Woodall - Last Filed: 04/10/23 16:54> - General Exam Comments Initial Comments: Visual Physical Exam Vital signs reviewed General: Well-appearing, nontoxic, no acute distress. Head: Normocephalic, atraumatic Eyes: PERRLA, EOMI ENT: Airway patent Chest: Nonlabored breathing Skin: No visual rash, normal skin tone Neuro: Alert and oriented 3 Musculoskeletal: No gross abnormalities (Meg Woodall) Course Vital Signs 04/10/23 04/10/23 04/10/23 16:40 18:57 19:18 Temperature 97.5 F L 98.2 F 98 F Pulse Rate 83 66 74 Respiratory 16 18 18 Rate Blood Pressure 127/69 117/45 120/73 O2 Sat by Pulse 100 99 93 L Oximetry Medical Decision Making <Meg Woodall - Last Filed: 04/10/23 16:54> - Lab Data Result diagrams: 04/10/23 17:58 04/10/23 17:58 <Pramod Pitts - Last Filed: 04/10/23 22:09> - Medical Decision Making I performed the QuickNote portion of this chart. Signed Meg Woodall PA-C. (Meg Woodall) See note entered by myself for additional information. This note only contains a quick note. (Pramod Pitts) - Lab Data Lab Results 04/10/23 04/10/23 04/10/23 Range/Units 17:58 17:58 17:58 WBC 7.6 (3.8-10.6) k/uL RBC 3.07 L (3.80-5.40) m/uL Hgb 9.5 L (11.4-16.0) gm/dL Hct 28.0 L (34.0-46.0) % MCV 91.1 (80.0-100.0) fL MCH 30.8 (25.0-35.0) pg MCHC 33.8 (31.0-37.0) g/dL RDW 12.6 (11.5-15.5) % Plt Count 303 (150-450) k/uL MPV 8.0 Neutrophils % 70 % Lymphocytes % 18 % Monocytes % 8 % Eosinophils % 2 % Basophils % 0 % Neutrophils # 5.3 (1.3-7.7) k/uL Lymphocytes # 1.4 (1.0-4.8) k/uL Monocytes # 0.6 (0-1.0) k/uL Eosinophils # 0.1 (0-0.7) k/uL Basophils # 0.0 (0-0.2) k/uL PT 10.7 (10.0-12.5) sec INR 1.0 (<1.2) APTT 22.1 (22.0-30.0) sec Sodium 133 L (137-145) mmol/L Potassium 4.1 (3.5-5.1) mmol/L Chloride 104 (98-107) mmol/L Carbon Dioxide 22 (22-30) mmol/L Anion Gap 7 mmol/L BUN 21 H (7-17) mg/dL Creatinine 0.69 (0.52-1.04) mg/dL Est GFR (CKD-EPI)AfAm >90 (>60 ml/min/1.73 sqM) Est GFR (CKD-EPI)NonAf 85 (>60 ml/min/1.73 sqM) Glucose 108 H (74-99) mg/dL POC Glucose (mg/dL) (70-110) mg/dL POC Glu Staff Development Nurse ID Calcium 8.6 (8.4-10.2) mg/dL Total Bilirubin 1.2 (0.2-1.3) mg/dL AST 26 (14-36) U/L ALT 23 (4-34) U/L Alkaline Phosphatase 50 (38-126) U/L Creatine Kinase 134 (30-135) U/L Troponin I (0.000-0.034) ng/mL Total Protein 6.3 (6.3-8.2) g/dL Albumin 3.6 (3.5-5.0) g/dL 04/10/23 04/10/23 Range/Units 17:58 18:01 WBC (3.8-10.6) k/uL RBC (3.80-5.40) m/uL Hgb (11.4-16.0) gm/dL Hct (34.0-46.0) % MCV (80.0-100.0) fL MCH (25.0-35.0) pg MCHC (31.0-37.0) g/dL RDW (11.5-15.5) % Plt Count (150-450) k/uL MPV Neutrophils % % Lymphocytes % % Monocytes % % Eosinophils % % Basophils % % Neutrophils # (1.3-7.7) k/uL Lymphocytes # (1.0-4.8) k/uL Monocytes # (0-1.0) k/uL Eosinophils # (0-0.7) k/uL Basophils # (0-0.2) k/uL PT (10.0-12.5) sec INR (<1.2) APTT (22.0-30.0) sec Sodium (137-145) mmol/L Potassium (3.5-5.1) mmol/L Chloride (98-107) mmol/L Carbon Dioxide (22-30) mmol/L Anion Gap mmol/L BUN (7-17) mg/dL Creatinine (0.52-1.04) mg/dL Est GFR (CKD-EPI)AfAm (>60 ml/min/1.73 sqM) Est GFR (CKD-EPI)NonAf (>60 ml/min/1.73 sqM) Glucose (74-99) mg/dL POC Glucose (mg/dL) 128 H (70-110) mg/dL POC Glu Staff Development Nurse ID Usman Gomez Calcium (8.4-10.2) mg/dL Total Bilirubin (0.2-1.3) mg/dL AST (14-36) U/L ALT (4-34) U/L Alkaline Phosphatase (38-126) U/L Creatine Kinase (30-135) U/L Troponin I <0.012 (0.000-0.034) ng/mL Total Protein (6.3-8.2) g/dL Albumin (3.5-5.0) g/dL Disposition <Meg Woodall - Last Filed: 04/10/23 16:54> <Pramod Pitts - Last Filed: 04/10/23 22:09> Clinical Impression: CVA (cerebral vascular accident), Right arm weakness, Radiculopathy Disposition: ADMITTED IP TO THIS HOSP Condition: Stable
[2023-04-10] MEDS ORDERED: SODIUM CHLORIDE 0.9% 500 ML 500 ML IV STA (17:48)
--- NOTE | 2023-04-10 18:02 | ED ---
General Adult HPI - General Chief complaint: Neuro Symptoms/Deficit Stated complaint: R arm and shoulder pain Time Seen by Provider: 04/10/23 16:45 Source: patient, RN notes reviewed, old records reviewed Mode of arrival: ambulatory Limitations: no limitations - History of Present Illness Initial comments: Patient is a 77-year-old female who presents emergency department complaining of neuro type symptoms. Patient was recently admitted and discharged today. Received thrombolytic therapy for suspected CVA on 04/07/2023. Symptoms completely resolved over her course of her stay here. CT imaging during that stay including brain CT, CTA of the brain, as well as brain MRI all negative. Presents today complaining of right neck and shoulder pain as well as weakness of the right upper extremity appearing hemorrhage and a difficult time extending and flexing the extremity above 90 degrees. Also has some drift when she fully extends it down. Does not hit the bed. No other symptoms at this time. States that started at 3 PM when she got home. Had no symptoms before that. States that throughout her stay here, she was having increasing right-sided neck pain that seemed like a muscle strain due to uncomfortable bed. States that is still present however no pain in the shoulder. Presents for further evaluation at this time. No obvious injury. No other acute complaints. - Related Data Home Medications Medication Instructions Recorded Confirmed lisinopriL [Prinivil] 10 mg PO DAILY 12/10/19 04/10/23 Docusate [Colace] 100 mg PO BID PRN 04/07/23 04/10/23 HYDROcodone/APAP 7.5-325MG [[place] 1 tab PO Q4H PRN 04/07/23 04/10/23 7.5-325] Ondansetron [Zofran] 4 mg PO Q8H PRN 04/07/23 04/10/23 Previous Rx's Medication Instructions Recorded Aspirin 81 mg PO DAILY #30 tab 04/10/23 Atorvastatin [Lipitor] 40 mg PO DAILY #30 tab 04/10/23 Pantoprazole [Protonix] 40 mg PO DAILY #30 tab 04/10/23 Allergies Allergy/AdvReac Type Severity Reaction Status Date / Time No Known Allergies Allergy Verified 04/10/23 18:13 Review of Systems ROS Statement: Those systems with pertinent positive or pertinent negative responses have been documented in the HPI. Review of Systems: CONST: Denies fever EYES: Denies blurry vision ENT: Denies nasal congestion C/V: Denies Chest pain RESP: Denies shortness of breath GI: Denies abdominal pain : Denies dysuria SKIN: Denies rash. MSK: Denies joint pain. NEURO: Endorses right arm weakness ROS Other: All systems not noted in ROS Statement are negative. Past Medical History Past Medical History: Hypertension History of Any Multi-Drug Resistant Organisms: None Reported Past Surgical History: Hysterectomy, Orthopedic Surgery Additional Past Surgical History / Comment(s): Knee surgery, left surgery surge ry. Past Anesthesia/Blood Transfusion Reactions: No Reported Reaction Past Psychological History: No Psychological Hx Reported Smoking Status: Former smoker Past Alcohol Use History: Daily Past Drug Use History: None Reported - Past Family History Mother Family Medical History: No Reported History General Exam - General Exam Comments Initial Comments: General: Appears anxious. HEAD: Normal with no signs of head trauma. EYES: PERRLA, EOMI, conjunctiva normal, no discharge. Pupils are 3 mm and equal bilaterally. ENT: Hearing grossly intact, normal oropharynx. RESPIRATORY: Clear breath sounds bilaterally. No wheezes, rales, or rhonchi. C/V: Regular rate and rhythm. S1 and S2 auscultated, no edema, peripheral pulses 2+ and intact throughout ABD: Abd is soft, nontender, nondistended EXT: Normal range of motion, no obvious deformity SKIN: No rashes or lesions observed on exposed skin. NEURO: Alert and oriented x 4. NIH is 1 for right upper extremity drift. Could be related to radiculopathy but difficult to say especially with her recent strokelike symptoms in the last few days. Patient does have some right trapezius muscle tenderness to palpation. No other symptoms at this time. Last known well was 1500. Limitations: no limitations Course Vital Signs 04/10/23 04/10/23 16:40 18:57 Temperature 97.5 F L 98.2 F Pulse Rate 83 66 Respiratory 16 18 Rate Blood Pressure 127/69 117/45 O2 Sat by Pulse 100 99 Oximetry Medical Decision Making - Medical Decision Making Was pt. sent in by a medical professional or institution (, PA, LAYUP WORKER, urgent care, hospital, or residential...) When possible be specific @ -No Did you speak to anyone other than the patient for history (EMS, parent, family, police, friend...)? What history was obtained from this source @ -No Did you review nursing and triage notes (agree or disagree)? Why? @ -I reviewed and agree with nursing and triage notes Were old charts reviewed (outside hosp., previous admission, EMS record, old EKG, old radiological studies, urgent care reports/EKG's, residential records)? Report findings @ -Yes Differential Diagnosis (chest pain, altered mental status, abdominal pain women, abdominal pain men, vaginal bleeding, weakness, fever, dyspnea, syncope, headache, dizziness, GI bleed, back pain, seizure, CVA, palpatations, mental health, musculoskeletal)? @ -Differential CVA Ischemic stroke, hemorrhagic stroke, brain tumor, atypical migraine, Wernicke's encephalopathy, seizure, multiple sclerosis, meningitis, encephalitis, hypoglycemia, Guillain-Mccarthy, electrolytes disturbance, myasthenia gravis.... This is not meant to be an all-inclusive list EKG interpreted by me (3pts min.). @ -As above X-rays interpreted by me (1pt min.). @ -Chest x-ray, right shoulder x-ray negative for any obvious traumatic injury. Does reveal chronic degeneration CT interpreted by me (1pt min.). @ -CT brain, C-spine reveals no obvious acute process. Now no acute intracranial bleed or injury. No evidence of acute stroke. Cervical spine shows degenerative disc changes and foraminal stenosis. U/S interpreted by me (1pt. min.). @ -None done What testing was considered but not performed or refused? (CT, X-rays, U/S, lab s)? Why? @ -Discussed CTA and MRI brain with Dr. Myers. As patient just recently received these he agrees that as long as CT is negative, he would defer further imaging at this time, considering her NIH of 1. What meds were considered but not given or refused? Why? @ -Consider thrombolytic therapy however patient's NIH is only 1. I did discuss with her and I believe the risks for outweigh the benefits. She was in agreement with the plan Did you discuss the management of the patient with other professionals (professionals i.e. , PA, LAYUP WORKER, lab, RT, psych nurse, social insurance administrator, technical illustrator, teacher, business practices officer, case preparer and liner)? Give summary @ -Discussed with on-call neuro crit care Dr. Myers who was in agreement with plan for code stroke. Was also in agreement that risks far outweigh the b enefits that he would not get thrombolytic therapy at this time. We discussed further imaging and he was in agreement just with CT brain. As long as CT brain is negative, no need for further CTA or MRI at this time. Was smoking cessation discussed for >3mins.? @ -No Was critical care preformed (if so, how long)? @ -Yes, 35 minutes Were there social determinants of health that impacted care today? How? (Homelessness, low income, unemployed, alcoholism, drug addiction, transportation, low edu. Level, literacy, decrease access to med. care, fdc, rehab)? @ -No Was there de-escalation of care discussed even if they declined (Discuss DNR or withdrawal of care, Hospice)? DNR status @ -No What co-morbidities impacted this encounter? (DM, HTN, Smoking, COPD, CAD, Cancer, CVA, ARF, Chemo, Hep., AIDS, mental health diagnosis, sleep apnea, morbid obesity)? @ -Recent CVA with thrombolytic therapy Was patient admitted / discharged? Hospital course, mention meds given and route, prescriptions, significant lab abnormalities, going to OR and other pertinent info. @ -Based on the patient's presentation and physical exam, patient originally presents as a quick note. Midlevel provider who performed a quick note was in contact with me, and patient was complaining of right shoulder pain and right neck pain. With this, she was also complaining of right upper extremity weakness. All seem to worsen at 3 PM. She has drift of the right upper extremity. Seem to be related to pain in triage. We obtained CT brain and I evaluate the patient when she was placed in a room. Patient obtained a CT brain and when I evaluate the patient, she did not have significant pain but there is some right trapezius muscle pain and discomfort. No obvious injury to the shoulder. Definitely has right upper extremity drift. NIH is 1. Last known well was 1500. No other symptoms. I discussed with the patient that as her NIH is low I would not administer thrombolytic therapy at this time and she was in agreement this plan. As I cannot definitively rule out CVA at this time I did make the patient a code stroke although this could just be radicular symptoms considering she also has righ older pain. Patient was in agreement with this plan. Patient was therefore made a code stroke at this time, 1746. I spoke with Dr. Myers neuro crit care on-call who was in agreement with the plan. We will see what the CT brain looks like, and otherwise recommended deferring further imaging unless CT brain shows something abnormal. I will also obtain right shoulder x-ray and chest x-ray. We will obtain stroke labs. Patient will not be given thrombolytic therapy as risks faraway the benefits. Patient Dr. Myers was in agreement this plan. Vital signs are within acceptable limits. EKG showed no signs of acute ischemia. Imaging is unremarkable. No evidence of acute process. Patient does have some degenerative changes of the C-spine and right shoulder. Patient's laboratory studies remarkable for undetectable troponin, chronic anemia. On reevaluation, symptoms are unchanged. Still has weakness with drift of the right upper extremity. I recommended observation admission. Dr. Quintero was in agreement this plan as well. Patient will be given 325 mg of aspirin. I spoke with Dr. Patton, on-call neurology who recommended dosing the patient with 150 mg of Plavix as well. He was in agreement the plan for observation admission. He will evaluate the patient. I spoke with admitting team MLAnita GARZA who accepted the patient. Undiagnosed new problem with uncertain prognosis? @ -No Drug Therapy requiring intensive monitoring for toxicity (Heparin, Nitro, Insulin, Cardizem)? @ -No Were any procedures done? @ -No Diagnosis/symptom? @ -CVA versus right upper extremity radiculopathy. Right upper extremity weakness. Acute, or Chronic, or Acute on Chronic? @ -Acute Uncomplicated (without systemic symptoms) or Complicated (systemic symptoms)? @ -Complicated Side effects of treatment? @ -None Exacerbation, Progression, or Severe Exacerbation] @ -No Poses a threat to life or bodily function? @ -Potentially, yes - Lab Data Result diagrams: 04/10/23 17:58 04/10/23 17:58 Lab Results 04/10/23 04/10/23 04/10/23 Range/Units 17:58 17:58 17:58 WBC 7.6 (3.8-10.6) k/uL RBC 3.07 L (3.80-5.40) m/uL Hgb 9.5 L (11.4-16.0) gm/dL Hct 28.0 L (34.0-46.0) % MCV 91.1 (80.0-100.0) fL MCH 30.8 (25.0-35.0) pg MCHC 33.8 (31.0-37.0) g/dL RDW 12.6 (11.5-15.5) % Plt Count 303 (150-450) k/uL MPV 8.0 Neutrophils % 70 % Lymphocytes % 18 % Monocytes % 8 % Eosinophils % 2 % Basophils % 0 % Neutrophils # 5.3 (1.3-7.7) k/uL Lymphocytes # 1.4 (1.0-4.8) k/uL Monocytes # 0.6 (0-1.0) k/uL Eosinophils # 0.1 (0-0.7) k/uL Basophils # 0.0 (0-0.2) k/uL PT 10.7 (10.0-12.5) sec INR 1.0 (<1.2) APTT 22.1 (22.0-30.0) sec Sodium 133 L (137-145) mmol/L Potassium 4.1 (3.5-5.1) mmol/L Chloride 104 (98-107) mmol/L Carbon Dioxide 22 (22-30) mmol/L Anion Gap 7 mmol/L BUN 21 H (7-17) mg/dL Creatinine 0.69 (0.52-1.04) mg/dL Est GFR (CKD-EPI)AfAm >90 (>60 ml/min/1.73 sqM) Est GFR (CKD-EPI)NonAf 85 (>60 ml/min/1.73 sqM) Glucose 108 H (74-99) mg/dL POC Glucose (mg/dL) (70-110) mg/dL POC Glu Marine Welder ID Calcium 8.6 (8.4-10.2) mg/dL Total Bilirubin 1.2 (0.2-1.3) mg/dL AST 26 (14-36) U/L ALT 23 (4-34) U/L Alkaline Phosphatase 50 (38-126) U/L Creatine Kinase 134 (30-135) U/L Troponin I (0.000-0.034) ng/mL Total Protein 6.3 (6.3-8.2) g/dL Albumin 3.6 (3.5-5.0) g/dL 04/10/23 04/10/23 Range/Units 17:58 18:01 WBC (3.8-10.6) k/uL RBC (3.80-5.40) m/uL Hgb (11.4-16.0) gm/dL Hct (34.0-46.0) % MCV (80.0-100.0) fL MCH (25.0-35.0) pg MCHC (31.0-37.0) g/dL RDW (11.5-15.5) % Plt Count (150-450) k/uL MPV Neutrophils % % Lymphocytes % % Monocytes % % Eosinophils % % Basophils % % Neutrophils # (1.3-7.7) k/uL Lymphocytes # (1.0-4.8) k/uL Monocytes # (0-1.0) k/uL Eosinophils # (0-0.7) k/uL Basophils # (0-0.2) k/uL PT (10.0-12.5) sec INR (<1.2) APTT (22.0-30.0) sec Sodium (137-145) mmol/L Potassium (3.5-5.1) mmol/L Chloride (98-107) mmol/L Carbon Dioxide (22-30) mmol/L Anion Gap mmol/L BUN (7-17) mg/dL Creatinine (0.52-1.04) mg/dL Est GFR (CKD-EPI)AfAm (>60 ml/min/1.73 sqM) Est GFR (CKD-EPI)NonAf (>60 ml/min/1.73 sqM) Glucose (74-99) mg/dL POC Glucose (mg/dL) 128 H (70-110) mg/dL POC Glu Marine Welder ID Jason, Usman Calcium (8.4-10.2) mg/dL Total Bilirubin (0.2-1.3) mg/dL AST (14-36) U/L ALT (4-34) U/L Alkaline Phosphatase (38-126) U/L Creatine Kinase (30-135) U/L Troponin I <0.012 (0.000-0.034) ng/mL Total Protein (6.3-8.2) g/dL Albumin (3.5-5.0) g/dL - EKG Data -: EKG Interpreted by Me EKG Comments: 12-lead Electrocardiogram Interpretation Note EKG was reviewed and interpreted by myself. 12-lead ECG performed at 1806 is interpreted by me as revealing normal sinus rhythm at a rate of 69 beats per minute. [place] is normal. AR interval is 140 ms, QRS duration is 92 ms, QTc is 418 ms.. There were no ST or T wave abnormalities to suggest myocardial ischemia or injury. R wave progression across the precordium was satisfactory. By my interpretation this EKG is non-diagnostic for acute ischemia. By my interpretation this EKG is non-diagnostic for acute ischemia R wave progression across the precordium was sa default value were no ST or T wave abnormaliti normal sinus rhythm l ischemia o default value normal Disposition Clinical Impression: CVA (cerebral vascular accident), Right arm weakness, Radiculopathy Disposition: ADMITTED IP TO THIS [facility] Condition: Stable Referrals: Jennifer Mcclure MD [Primary Care Provider] - 1-2 days Time of Disposition: 19:04
[2023-04-10 18:03] LABS: Glucose,Whole Blood 128 mg/dL (70-110)
[2023-04-10 18:16] LABS: Basophils % (A) 0 %; Eosinophils # (A) 0.1 k/uL (0-0.7); Eosinophils % (A) 2 %; HGB 9.5 gm/dL (11.4-16.0); Lymphocytes # (A) 1.4 k/uL (1.0-4.8); Lymphocytes % (A) 18 %; MCH 30.8 pg (25.0-35.0); MCHC 33.8 g/dL (31.0-37.0); MCV 91.1 fL (80.0-100.0); Monocytes # (A) 0.6 k/uL (0-1.0); Monocytes % (A) 8 %; Neutrophils # (A) 5.3 k/uL (1.3-7.7); Neutrophils % (A) 70 %; Platelet Count 303 k/uL (150-450); RBC 3.07 m/uL (3.80-5.40); RDW 12.6 % (11.5-15.5); WBC 7.6 k/uL (3.8-10.6)
--- NOTE | 2023-04-10 18:19 | CT ---
EXAMINATION TYPE: CT brain jamirine wo con DATE OF EXAM: 04/10/2023 COMPARISON: 03/05/2023, MRI brain 03/08/2024 HISTORY: right arm weakness. pt was a code stroke patient on 04/07, pt was just discharged from our spital this morning. CT DLP: 1286.4 mGycm, Automated exposure control for dose reduction was used. CONTRAST: Patient injected with 0 mL of Isovue 300. CT of the brain is performed utilizing 3 mm thick sections through the posterior fossa and 3 mm thick sections through the remaining calvarium. Study is performed within 24 hours of arrival to the hospital. No abnormal hyperdensity is present to suggest an acute intracranial hemorrhage. No mass lesion is evident. No acute infarcts are evident. Ventricles and sulci are mildly prominent for the patient age. Paranasal sinuses and mastoid air cells within the [id number] are clear. IMPRESSIONS: 1. No acute intracranial process. 2. No significant interval change from prior CT or MRI. CT cervical spine. COMPARISON: None CT of the cervical spine is performed in the axial plane at 2 mm thick sections. Reconstructed image s in the coronal, and sagittal plane are reviewed on the computer. No acute fractures are evident. Vertebral body alignment is normal. Disc space narrowing is present C3-4 through C6-7. Anterior vertebral body spurring is present throug h these levels. Posterior spinal lamellar line is intact. Prevertebral space is unremarkable. Vertebral body heights are preserved. No spinal canal stenosis is evident. Some mild foraminal narrowing C6-7 bilaterally, C5-6 bilaterally and to a lesser degree C4-5 for from uncovertebral joint hypertrophy. IMPRESSION: 1. Degenerative disc changes and foraminal stenosis discussed above.
[2023-04-10 18:28] LABS: ALT 23 U/L (4-34); AST 26 U/L (14-36); African American GFR (CKD) >90 (>60 ml/min/1.73 sqM); Albumin 3.6 g/dL (3.5-5.0); Alkaline Phosphatase 50 U/L (38-126); Anion Gap 7 mmol/L; Blood Urea Nitrogen 21 mg/dL (7-17); Calcium 8.6 mg/dL (8.4-10.2); Carbon Dioxide 22 mmol/L (22-30); Chloride 104 mmol/L (98-107); Creatine Kinase 134 U/L (30-135); Glucose 108 mg/dL (74-99); Non-African American GFR(CKD) 85 (>60 ml/min/1.73 sqM); Potassium 4.1 mmol/L (3.5-5.1); Sodium 133 mmol/L (137-145); Total Bilirubin 1.2 mg/dL (0.2-1.3); Total Protein 6.3 g/dL (6.3-8.2)
--- NOTE | 2023-04-10 18:38 | XR ---
EXAMINATION TYPE: XR chest 2V DATE OF EXAM: 04/10/2023 COMPARISON: 04/07/2023 INDICATION: Altered mental status, right shoulder pain TECHNIQUE: Frontal and lateral views of the chest are obtained. FINDINGS: The heart size is normal. The pulmonary vasculature is normal. The lungs are clear. IMPRESSION: 1. No acute pulmonary process.
--- NOTE | 2023-04-10 18:38 | XR ---
EXAMINATION TYPE: XR shoulder limited RT DATE OF EXAM: 04/10/2023 COMPARISON: NONE HISTORY: Pain TECHNIQUE: Right Shoulder examined in 2 projections. FINDINGS: The humeral head articulates with the glenoid. Acromioclavicular junction is some mild hypertrophy. No widening of the acromioclavicular junction is evident. No acute fractures or dislocations are evident. A follow up study can be performed 7-10 days from acute trauma for continued pain. MRI can be perfor med if soft tissue evaluation would be of benefit. IMPRESSION: 1. No acute osseous shoulder abnormality. 2. Mild degenerative changes acromioclavicular junction
[2023-04-10] MEDS ORDERED: ASPIRIN 325 MG TAB PO STA (18:44)
[2023-04-10 18:46] LABS: Partial Thromboplastin Time 22.1 sec (22.0-30.0); Prothrombin Time 10.7 sec (10.0-12.5)
[2023-04-10] MEDS ORDERED: CLOPIDOGREL 75 MG TAB PO STA ×2 (19:05→19:20)
[2023-04-10] MEDS ORDERED: DOCUSATE 100 MG CAP PO PRN (19:18)
[2023-04-10] MEDS ORDERED: LIDOCAINE 4% PATCH TOPICAL STA (19:19)
[2023-04-10 22:34] LABS: Appearance,Urine Clear (Clear); Bilirubin,Urine Negative (Negative); Blood,Urine Negative (Negative); Color,Urine Colorless; Glucose,Urine (UA) Negative (Negative); Ketones,Urine Negative (Negative); Leukocyte Esterase,Urine Negative (Negative); Nitrite,Urine Negative (Negative); PH, Urine 6.5 (5.0-8.0); Protein,Urine Negative (Negative); Specific Gravity,Urine 1.003 (1.001-1.035); Urobilinogen,Urine <2.0 mg/dL (<2.0)
--- NOTE | 2023-04-10 23:00 | US ---
EXAM: US Duplex Right Lower Extremity Veins CLINICAL HISTORY: Right leg swelling TECHNIQUE: Real-time duplex ultrasound scan of the right lower extremity veins integrating B-mode two-dimensional vascular structure, Doppler spectral analysis, color flow Doppler imaging and compression. COMPARISON: No relevant prior studies available. FINDINGS: Deep veins: Unremarkable. No DVT in the visualized common femoral, femoral, proximal deep femoral or popliteal veins. The veins demonstrate normal color flow, are normally compressible, with normal phasic flow and/or augmentation response. The interrogated calf veins are patent. The contralateral left common femoral vein was interrogated and is patent. Superficial veins: Unremarkable. No thrombus in the saphenofemoral junction. Soft tissues: No acute findings. No popliteal cyst. IMPRESSION: No evidence for deep vein thrombosis involving the right lower extremity.
[2023-04-10] MEDS: HYDROcodone/APAP 7.5-325MG 1 EACH TAB PO PRN (23:19)
[2023-04-11] MEDS ORDERED: lisinopriL 10 MG TAB PO SCH (09:00)
[2023-04-11] MEDS: ATORVASTATIN 40 MG TAB PO SCH (11:04)
[2023-04-11] MEDS: ASPIRIN 81 MG PO SCH (11:06)
[2023-04-11 11:29] LABS: Chol/HDL Ratio 2.06 Ratio; LDL Cholesterol,Calculated 51.7 mg/dL (0.0-131.0); VLDL Calculation 9.44 mg/dL (5.00-40.00)
[2023-04-11] MEDS ORDERED: ONDANSETRON 4 MG/2 ML VIAL IVP PRN (15:31)
--- NOTE | 2023-04-11 15:31 | P.HPIM ---
History of Present Illness H&P Date: 04/11/23 This is a very pleasant 77-year-old female who presented to the emergency department with recently being discharged home yesterday afternoon from a recent TIA/CVA and had received extensive neurological workup including administration of tPA. Patient started with some right-sided neck pain that she had been having ongoing over the last 3 days prior with no difficulties in the left or right upper extremities. When getting home she noticed she cannot raise her right arm or use her right arm and was concerned that she was having another stroke. Patient with family at the bedside was brought back to the hospital for further evaluation. Patient also reporting some pain in that right shoulder as well as neck. Patient reports she follows with Dr. Mcclure in the outpatient setting with a past medical history of hypertension, recent right total knee arthroplasty about 1 week prior and had been at rehab for strength and mobility. Patient had been continued on aspirin and statin therapy and also given a dose of Plavix. Repeat CT of the head shows no acute intracranial process with no significant interval change from prior CT or MRI and CT of the cervical spine shows degenerative disc changes and for minimal stenosis at the C3-C4 through C6-C7 with disc space narrowing. EKG showed sinus rhythm. Patient also had a venous Doppler done on the right lower extremity as she has been hospitalized and recently had a surgery for total knee arthroplasty to evaluate for DVT and there was no evidence of DVT noted of the right lower extremity. Chest x-ray within normal limits with no acute pulmonary process as well as a shoulder x-ray on the right showing no acute osseous shoulder abnormality with mild degenerative changes of the acromioclavicular junction. Labs revealed hemoglobin was 9.5 and earlier in the day was 9.7, white count within normal limits, sodium slightly low at 133, potassium 4.1, creatinine 0.69, blood sugar is normal, bili 1.2, troponin negative, and urinalysis was negative. Patient was admitted under observation with neurology on consult. REVIEW OF SYSTEMS: CONSTITUTIONAL: No fever, no malaise, no fatigue. HEENT: No recent visual problems or hearing problems. Denied any sore throat. CARDIOVASCULAR: No chest pain, orthopnea, PND, no palpitations, no syncope. PULMONARY: No shortness of breath, no cough, no hemoptysis. GASTROINTESTINAL: No diarrhea, no nausea, no vomiting, no abdominal pain. NEUROLOGICAL: No headaches, no weakness, no numbness. HEMATOLOGICAL: Denies any bleeding or petechiae. GENITOURINARY: Denies any burning micturition, frequency, or urgency. MUSCULOSKELETAL/RHEUMATOLOGICAL: Denies any joint pain, swelling, or any muscle pain. ENDOCRINE: Denies any polyuria or polydipsia. The rest of the 14-point review of systems is negative. PHYSICAL EXAMINATION: GENERAL: The patient is alert and oriented x3, not in any acute distress. Well developed, well nourished. HEENT: Pupils are round and equally reacting to light. EOMI. No scleral icterus. No conjunctival pallor. Normocephalic, atraumatic. No pharyngeal erythema. No thyromegaly. CARDIOVASCULAR: S1 and S2 present. No murmurs, rubs, or gallops. PULMONARY: Chest is clear to auscultation, no wheezing or crackles. ABDOMEN: Soft, nontender, nondistended, normoactive bowel sounds. No palpable organomegaly. MUSCULOSKELETAL: No joint swelling or deformity. EXTREMITIES: No cyanosis, clubbing, or pedal edema. NEUROLOGICAL: Gross neurological examination did not reveal any focal deficits. SKIN: No rashes. 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 from 2018 Recent history of total knee arthroplasty on the right approximately 1 week ago Hypertension history Mild hyponatremia, likely secondary to reduced oral intake Prior history of smoking GI prophylaxis DVT prophylaxis Full code Plan: Patient was admitted for neurological evaluation with neurology on consult who has placed an order for MRI of the cervical spine as patient is having right shoulder and upper arm pain with weakness and difficulty lifting the right arm up past 90 degrees Patient was having some right shoulder pain and neck pain most likely a strain although will await MRI Recent hospitalization with surgical intervention of total knee arthroplasty on the right and underwent Doppler and DVT was ruled out Home medications reviewed and resumed as appropriate Will have PT/OT therapy evaluate the patient The impression and plan of care has been dictated by Pamela Sherwood, Nurse Practitioner as directed. Dr. Mary Lou MD I have performed a history and examination and MDM of this patient, discussed the same with the dictator, and agree with the dictator's assessment and plan as written ,documented as a scribe. Based on total visit time, I have performed more than 50% of the visit. Past Medical History Past Medical History: Hypertension History of Any Multi-Drug Resistant Organisms: None Reported Past Surgical History: Hysterectomy, Orthopedic Surgery Additional Past Surgical History / Comment(s): Knee surgery, left surgery surgery. Past Anesthesia/Blood Transfusion Reactions: No Reported Reaction Past Psychological History: No Psychological Hx Reported Smoking Status: Former smoker Past Alcohol Use History: Daily Past Drug Use History: None Reported - Past Family History Mother Family Medical History: No Reported History Medications and Allergies Home Medications Medication Instructions Recorded Confirmed Type RX: lisinopriL [Prinivil] 10 mg PO DAILY 12/10/19 04/10/23 History RX: Docusate [Colace] 100 mg PO BID PRN 04/07/23 04/10/23 History RX: HYDROcodone/APAP 7.5-325MG 1 tab PO Q4H PRN 04/07/23 04/10/23 History [[place] 7.5-325] RX: Ondansetron [Zofran] 4 mg PO Q8H PRN 04/07/23 04/10/23 History RX: Aspirin 81 mg PO DAILY #30 tab 04/10/23 04/10/23 Rx RX: Atorvastatin [Lipitor] 40 mg PO DAILY #30 tab 04/10/23 04/10/23 Rx RX: Pantoprazole [Protonix] 40 mg PO DAILY #30 tab 04/10/23 04/10/23 Rx Allergies Allergy/AdvReac Type Severity Reaction Status Date / Time No Known Allergies Allergy Verified 04/10/23 18:13 Physical Exam Vitals: Vital Signs Temp Pulse Resp BP Pulse Ox 04/11/23 10:53 70 20 134/47 100 04/11/23 07:30 98.3 F 80 28 H 124/55 100 04/11/23 04:08 98.2 F 69 18 117/64 100 04/11/23 02:00 77 16 115/55 98 04/10/23 23:00 73 20 117/59 96 04/10/23 22:00 89 20 122/68 99 04/10/23 19:18 98 F 74 18 120/73 93 L 04/10/23 18:57 98.2 F 66 18 117/45 99 04/10/23 16:40 97.5 F L 83 16 127/69 100 Intake and Output 04/10/23 04/11/23 04/11/23 22:59 06:59 14:59 Other: Weight 56.699 kg Results CBC & Chem 7: 04/10/23 17:58 04/10/23 17:58 Labs: Abnormal Lab Results - Last 24 Hours (Table) 04/10/23 04/10/23 04/10/23 Range/Units 17:58 17:58 18:01 RBC 3.07 L (3.80-5.40) m/uL Hgb 9.5 L (11.4-16.0) gm/dL Hct 28.0 L (34.0-46.0) % Sodium 133 L (137-145) mmol/L BUN 21 H (7-17) mg/dL Glucose 108 H (74-99) mg/dL POC Glucose (mg/dL) 128 H (70-110) mg/dL
[2023-04-11] MEDS ORDERED: ACETAMINOPHEN TAB 325 MG TAB PO PRN (15:32)
[2023-04-11] MEDS: LIDOCAINE 4% PATCH TOPICAL SCH (16:30)
--- NOTE | 2023-04-11 18:42 | P.CNNES ---
History of Present Illness Consult date: 04/11/23 Requesting physician: Pramod Pitts Reason for Consult: RUE weakness, drift. Code stroke History of Present Illness: Patient is a 77-year-old right-handed female, recently seen in the hospital for possible an acute stroke, received TNK, did remarkably well, and then discharged yesterday at around 3 PM. She has returned back to normal. All symptoms have resolved. MRI of the brain was negative. Patient came back to the hospital at 4:36 PM for acute onset of right arm weakness. Patient's was also prese nt, and they provided the history. Since patient went home, she was feeling stiffness in the neck. For last 2 days she has been having aching in the shoulder and right upper arm region. When she went home, she was not able to lift her right arm. Her asked her to hold the arms in front, and the right arm droop. They got concerned if patient was having another stroke, therefore returned back to the hospital. Vital signs on arrival blood pressure 127/69, pulse rate [address] head revealed no acute intracranial process. No significant interval change from prior CT or MRI. I personally reviewed CT head agree with the findings. CT of the cervical spine revealed degenerative disc changes and foraminal stenosis. Patient was not a candidate for tPA. Stroke code was activated. ED staff discussed case with Dr. Quintero, and she was considered not a candidate for CTA or thrombectomy. ED staff discussed case with me, and I recommended to give loading dose of Plavix 150 mg. Workup performed in recent admission include: MRI of the brain without contrast, revealed mild age-related atrophic changes. No acute or subacute infarct. I personally reviewed MRI agree with the findings. 2-D echo revealed technically difficult study for interpretation. Normal right ventricular systolic function with EF 55 to 60%. Normal left ventricular wall thickness. Normal left atrial size. No valvular abnormalities. CTA head and neck showed: No significant abnormality. No sizable aneurysm, vascular malformation, stenosis or segmental occlusion. Patient's previous MRA of the brain showed left vertebral artery aneurysm, although CTA did not reveal any. I reviewed her CTA with Dr. Rivera, and also with Dr. Blackburn. It appears the current study is very poor study, and the aneurysm is not visualized in the current CTA. The aneurysm mainly originates from the left PICA (not the PCOM or vertebral artery) as per Dr. Rivera review of the images. Fasting a.m. lipid panel with cholesterol 152, LDL 82, HDL 56, triglycerides 64. Agree with starting Lipitor 40 mg at bedtime. Hemoglobin A1c 5.5. EEG was performed, which was abnormal due to intermittent left temporal focal slowing and dysrhythmic delta and theta range, suggestive of focal cortical neuronal dysfunction. This may be related to her stroke/TIA. No epileptiform activity was seen. Review of Systems Completely unremarkable, except as mentioned in HPI. Patient does complain of fatigue otherwise. Past Medical History Past Medical History: Hypertension History of Any Multi-Drug Resistant Organisms: None Reported Past Surgical History: Hysterectomy, Orthopedic Surgery Additional Past Surgical History / Comment(s): Knee surgery, left surgery surgery. Past Anesthesia/Blood Transfusion Reactions: No Reported Reaction Past Psychological History: No Psychological Hx Reported Smoking Status: Former smoker Past Alcohol Use History: Daily Past Drug Use History: None Reported - Past Family History Mother Family Medical History: No Reported History Medications and Allergies Home Medications Medication Instructions Recorded Confirmed Type lisinopriL [Prinivil] 10 mg PO DAILY 12/10/19 04/10/23 History Docusate [Colace] 100 mg PO BID PRN 04/07/23 04/10/23 History HYDROcodone/APAP 7.5-325MG [[place] 1 tab PO Q4H PRN 04/07/23 04/10/23 History 7.5-325] Ondansetron [Zofran] 4 mg PO Q8H PRN 04/07/23 04/10/23 History Aspirin 81 mg PO DAILY #30 tab 04/10/23 04/10/23 Rx Atorvastatin [Lipitor] 40 mg PO DAILY #30 tab 04/10/23 04/10/23 Rx Pantoprazole [Protonix] 40 mg PO DAILY #30 tab 04/10/23 04/10/23 Rx Allergies Allergy/AdvReac Type Severity Reaction Status Date / Time No Known Allergies Allergy Verified 04/10/23 18:13 Physical Examination - Vital Signs Vital Signs: Vital Signs Temp Pulse Pulse Resp BP BP Pulse Ox 04/11/23 16:20 72 16 119/54 97 04/11/23 14:00 16 04/11/23 12:49 97.5 F L 79 16 128/75 96 04/11/23 10:53 70 20 134/47 100 04/11/23 07:30 98.3 F 80 28 H 124/55 100 04/11/23 04:08 98.2 F 69 18 117/64 100 04/11/23 02:00 77 16 115/55 98 04/10/23 23:00 73 20 117/59 96 04/10/23 22:00 89 20 122/68 99 04/10/23 19:18 98 F 74 18 120/73 93 L 04/10/23 18:57 98.2 F 66 18 117/45 99 Intake and Output 04/11/23 04/11/23 04/11/23 06:59 14:59 22:59 Other: Weight 56.699 kg Patient is an elderly female, very pleasant, in no acute distress. Patient is alert awake oriented to time place and person. Speech and language functions are normal. Patient can name and repeat very well. No aphasia or dysarthria. Attention, concentration and fund of knowledge is adequate. No speech difficulty and can express very well. On cranial nerve examination, pupils are equal, round and reacting to light, visual gibbs are full on confrontation, with no neglect on double simultaneous stimulation. Extraocular muscles are intact with no nystagmus. Face is symmetric, her tongue protrudes to the midline. Palatal elevation and sensation normal, hearing and shoulder shrug normal, facial sensation normal. On muscle strength testing, there is right pronator drift. The strength is (right/left) deltoid 3-/5, biceps 4/5, triceps 5/5, wrist extension 5/5, wrist flexion 5/5, home health caregiver is 5/5. In the lower limbs her hip flexion is about 4 bilaterally, ankle dorsiflexion normal. Knees not checked because of recent right knee surgery. Deep tendon reflexes are (right/left) biceps 1+/2+, brachioradialis 2/2, triceps 3/3, knee -/1+ and plantars are downgoing bilaterally. Sensory to touch is equal with no neglect on double simultaneous stimulation. Cerebellar function showed no ataxia for [id number] testing. No dysdiadochokinesia. Tone and bulk of muscles normal. Gait deferred.. On general examination, there is no carotid bruit or murmur, S1-S2 audible. Chest is clear on consultation. Abdomen is soft nontender. No organomegaly, bowel sounds present. Peripheral pulses are present. No peripheral edema. Results - Laboratory Findings CBC and BMP: 04/10/23 17:58 04/10/23 17:58 Abnormal Lab Findings: Abnormal Labs 04/10/23 04/10/23 04/10/23 17:58 17:58 18:01 RBC 3.07 L Hgb 9.5 L Hct 28.0 L Sodium 133 L BUN 21 H Glucose 108 H POC Glucose (mg/dL) 128 H Assessment and Plan Assessment: * Acute right upper extremity weakness, mainly involving the right deltoid and biceps. Patient has been having neck stiffness for last 2 days, and recently has developed pain in the right shoulder and upper arm region. Rule out C5-C6 radiculopathy. CVA somewhat less likely. * Hypertension * History of saccular left PICA aneurysm measuring 3.4 x 1.6 mm, stable * Status post right knee arthroplasty * Ex tobacco use Plan: * Continue Plavix 75 mg daily along with aspirin 81 mg. * Continue Lipitor 40 mg. * MRI of the cervical spine. * We will follow. Thank you for the consult
[2023-04-11] MEDS: CLOPIDOGREL 75 MG TAB PO SCH (19:05)
[2023-04-11] MEDS: SENNOSIDES 8.6 MG TAB PO SCH (20:19)
[2023-04-11] MEDS ORDERED: METOPROLOL TARTRATE 25 MG TAB PO SCH (23:45)
[2023-04-12] MEDS ORDERED: DILTIAZEM 125 MG in SODIUM CHLORIDE 0.9% 100 ML IV SCH (01:00)
[2023-04-12] MEDS: PANTOPRAZOLE 40 MG TABLET PO SCH (06:24)
[2023-04-12] MEDS: METOPROLOL TARTRATE 50 MG TAB PO SCH ×2 (08:46→19:40)
[2023-04-12] MEDS: ATORVASTATIN 40 MG TAB PO SCH (08:46)
[2023-04-12] MEDS: SENNOSIDES 8.6 MG TAB PO SCH ×2 (08:46→19:40)
[2023-04-12] MEDS: LIDOCAINE 4% PATCH TOPICAL SCH (08:46)
[2023-04-12 09:23] LABS: Basophils % (A) 0 %; Eosinophils # (A) 0.2 k/uL (0-0.7); Eosinophils % (A) 2 %; HCT 31.4 % (34.0-46.0); HGB 10.1 gm/dL (11.4-16.0); Hypochromasia Slight; Lymphocytes # (A) 1.5 k/uL (1.0-4.8); Lymphocytes % (A) 18 %; MCH 29.9 pg (25.0-35.0); MCHC 32.1 g/dL (31.0-37.0); MCV 93.2 fL (80.0-100.0); Monocytes # (A) 0.6 k/uL (0-1.0); Monocytes % (A) 7 %; Neutrophils # (A) 5.6 k/uL (1.3-7.7); Neutrophils % (A) 70 %; Platelet Count 375 k/uL (150-450); RBC 3.37 m/uL (3.80-5.40); RDW 13.1 % (11.5-15.5)
[2023-04-12 09:49] LABS: African American GFR (CKD) >90 (>60 ml/min/1.73 sqM); Anion Gap 8 mmol/L; Blood Urea Nitrogen 15 mg/dL (7-17); Calcium 8.8 mg/dL (8.4-10.2); Carbon Dioxide 20 mmol/L (22-30); Chloride 110 mmol/L (98-107); Glucose 108 mg/dL (74-99); Magnesium 2.1 mg/dL (1.6-2.3); Non-African American GFR(CKD) 84 (>60 ml/min/1.73 sqM); Sodium 138 mmol/L (137-145)
[2023-04-12] MEDS: ASPIRIN 81 MG PO SCH (10:03)
[2023-04-12] MEDS: CLOPIDOGREL 75 MG TAB PO SCH (10:03)
[2023-04-12] MEDS: FLECAINIDE 50 MG TAB PO SCH ×2 (11:08→19:40)
[2023-04-12] MEDS: APIXABAN 5 MG TAB PO SCH ×2 (11:08→19:40)
--- NOTE | 2023-04-12 11:08 | P.CRDCN ---
History of Present Illness History of present illness: HISTORY OF PRESENT ILLNESS: This is a 77-year-old female with a past medical history significant for hypertension and hyperlipidemia. Patient does not follow with a public health assistant. We have been asked to see the patient in consultation for A-fib with RVR. Patient examined at the bedside. Patient presented to the hospital with a chief complaint of right upper arm weakness. She states that she was seen earlier in the week for similar symptoms and was discharged home on . She states afternoon her symptoms began to worsen and she presented back to the hospital. The patient did go into A-fib with RVR overnight. The patient denies a history of atrial fibrillation. She does report having some palpitations yesterday. Patient was still in atrial fibrillation with heart rate around 110 at the time of examination. Her beta-waqas was increased. She has since co nverted to sinus mechanism. The patient is a non-smoker. She denies any drug use including marijuana. She does report drinking wine on a nightly basis. DIAGNOSTICS: - EKG reveals A-fib with RVR - Chest xray negative for acute process Venous Doppler: Negative for DVT of right lower extremity - Current home cardiac medications include aspirin 81 mg daily, lisinopril 10 mg daily, and atorvastatin 40 mg daily - Echocardiogram performed on April 08, 2023 revealed normal ejection fraction with no significant valvular issues - Cardiac catheterization history: Patient denies REVIEW OF SYSTEMS: At the time of my exam: CONSTITUTIONAL: Denies fever or chills. HEENT: Denies blurred vision, vision changes, or eye pain. Denies hemoptysis CARDIOVASCULAR: Denies chest pain. Denies orthopnea. Denies PND. Denies palpitations RESPIRATORY: Denies shortness of breath. GASTROINTESTINAL: Denies abdominal pain. Denies nausea or vomiting. HEMATOLOGIC: Denies bleeding disorders. GENITOURINARY: Denies any blood in urine. SKIN: Denies pruitis. Denies rash. PHYSICAL EXAM: VITAL SIGNS: Reviewed. GENERAL: Well-developed in no acute distress. HEENT: Head is normocephalic. Pupils are equal, round. Sclerae anicteric. Mucous membranes of the mouth are moist. Neck supple. No JVD or thyromegaly LUNGS: Respirations even and unlabored. Lungs essentially clear to auscultation bilaterally. HEART: Regular rate and rhythm. S1 and S2 heard. ABDOMEN: Soft. Nondistended. Nontender. EXTREMITIES: Normal range of motion. No clubbing or cyanosis. Peripheral pulses intact. No lower extremity edema NEUROLOGIC: Awake and alert. Oriented x 3. ASSESSMENT: Right upper extremity weakness, rule out neurologic etiology New onset paroxysmal atrial fibrillation with RVR, currently maintaining sinus mechanism History of hypertension History of hyperlipidemia Daily alcohol use, patient reports having a glass of wine nightly Recent right total knee arthroplasty, March 2023 PLAN: No need to repeat echocardiogram as this was performed earlier this week Discontinue IV Cardizem Discontinue lisinopril as blood pressures have been on the lower side Increase metoprolol to 50 mg twice a day Begin Eliquis 5 mg twice a day. Case discussed with neurology who is agreeable to anticoagulation. Discontinue aspirin and Plavix Continue telemetry monitoring Recommend abstinence from alcohol Further recommendations pending patient course Nurse practitioner note has been reviewed by physician. Signing provider agrees with the documented findings, assessment, and plan of care documented by [employer] as a scribe. Past Medical History Past Medical History: Hypertension History of Any Multi-Drug Resistant Organisms: None Reported Past Surgical History: Hysterectomy, Orthopedic Surgery Additional Past Surgical History / Comment(s): Knee surgery, left surgery surgery. Past Anesthesia/Blood Transfusion Reactions: No Reported Reaction Past Psychological History: No Psychological Hx Reported Smoking Status: Former smoker Past Alcohol Use History: Daily Past Drug Use History: None Reported - Past Family History Mother Family Medical History: No Reported History Medications and Allergies Home Medications Medication Instructions Recorded Confirmed Type lisinopriL [Prinivil] 10 mg PO DAILY 12/10/19 04/10/23 History Docusate [Colace] 100 mg PO BID PRN 04/07/23 04/10/23 History HYDROcodone/APAP 7.5-325MG [[place] 1 tab PO Q4H PRN 04/07/23 04/10/23 History 7.5-325] Ondansetron [Zofran] 4 mg PO Q8H PRN 04/07/23 04/10/23 History Aspirin 81 mg PO DAILY #30 tab 04/10/23 04/10/23 Rx Atorvastatin [Lipitor] 40 mg PO DAILY #30 tab 04/10/23 04/10/23 Rx Pantoprazole [Protonix] 40 mg PO DAILY #30 tab 04/10/23 04/10/23 Rx Allergies Allergy/AdvReac Type Severity Reaction Status Date / Time No Known Allergies Allergy Verified 04/10/23 18:13 Physical Exam Vitals: Vital Signs Temp Pulse Pulse Resp BP BP Pulse Ox 04/12/23 03:29 141 H 16 101/64 99 04/12/23 00:00 133 H 16 120/62 98 04/11/23 20:31 98.2 F 92 16 136/71 99 04/11/23 19:35 98.2 F 79 18 115/68 96 04/11/23 16:20 72 16 119/54 97 04/11/23 14:00 16 04/11/23 12:49 97.5 F L 79 16 128/75 96 04/11/23 10:53 70 20 134/47 100 Intake and Output 04/11/23 04/12/23 04/12/23 22:59 06:59 14:59 Intake Total 540 578.167 Balance 540 578.167 Intake: Intake, IV Titration 38.167 Amount Diltiazem 125 mg In 38.167 Sodium Chloride 0.9% 100 ml @ 10 MG/HR 10 mls/hr IV .[id number] [facility] Rx#: [id number] Oral 540 540 Other: Voiding Method Toilet Toilet # Voids 1 1 Results 04/12/23 08:48 04/12/23 08:48 Lipids 04/11/23 Range/Units 06:23 Triglycerides 47.20 (0.00-149.00) mg/dL Cholesterol 119.00 (0.00-200.00) mg/dL HDL Cholesterol 57.90 (40.00-60.00) mg/dL Cholesterol/HDL Ratio 2.06 Ratio Current Medications Generic Name Dose Route Start Last Admin Trade Name Freq PRN Reason Stop Dose Admin Acetaminophen 650 mg 04/11/23 15:32 Acetaminophen Tab 325 Mg Tab PO Q6HR PRN Fever and/ or Pain Hydrocodone Bitart/Acetaminophen 1 each 04/10/23 22:24 04/10/23 23:19 Hydrocodone/Apap 7.5-325mg 1 Each Tab PO 1 each Q4H PRN Administration Pain Aspirin 81 mg 04/11/23 09:00 04/11/23 11:06 Aspirin 81 Mg PO 81 mg DAILY JAMISON Administration Atorvastatin Calcium 40 mg 04/11/23 09:00 04/11/23 11:04 Atorvastatin 40 Mg Tab PO 40 mg DAILY JAMISON Administration Clopidogrel Bisulfate 75 mg 04/11/23 18:45 04/11/23 19:05 Clopidogrel 75 Mg Tab PO 75 mg DAILY JAMISON Administration Docusate Sodium 100 mg 04/10/23 19:18 04/11/23 16:30 Docusate 100 Mg Cap PO 100 mg BID PRN Administration Constipation Diltiazem HCl 125 mg/ Sodium 125 mls @ 10 mls/hr 04/12/23 01:00 04/12/23 05:06 Chloride IV 5 mg/hr .[id number] [facility] 5 mls/hr Infusion 10 MG/HR Lidocaine 2 patch 04/11/23 15:29 04/11/23 16:30 Lidocaine 4% Patch TOPICAL 2 patch DAILY [facility] Administration Protocol Lisinopril 10 mg 04/11/23 09:00 04/11/23 11:04 Lisinopril 10 Mg Tab PO 10 mg DAILY [facility] Administration Metoprolol Tartrate 25 mg 04/11/23 23:45 04/11/23 23:57 Metoprolol Tartrate 25 Mg Tab PO 25 mg BID [facility] Administration Ondansetron HCl 4 mg 04/11/23 15:31 Ondansetron 4 Mg/2 Ml Vial IVP Q6HR PRN Nausea And Vomiting Pantoprazole Sodium 40 mg 04/12/23 07:30 04/12/23 06:24 Pantoprazole 40 Mg Tablet PO 40 mg [id number] [facility] Administration Senna 8.6 mg 04/11/23 21:00 04/11/23 20:19 Sennosides 8.6 Mg Tab PO 8.6 mg BID [facility] Administration Intake and Output 04/11/23 04/12/23 04/12/23 22:59 06:59 14:59 Intake Total 540 578.167 Balance 540 578.167 Intake: Intake, IV Titration 38.167 Amount Diltiazem 125 mg In 38.167 Sodium Chloride 0.9% 100 ml @ 10 MG/HR 10 mls/hr IV .[id number] [facility] Rx#: [id number] Oral 540 540 Other: Voiding Method Toilet Toilet # Voids 1 1 04/10/23 17:58 04/10/23 17:58
--- NOTE | 2023-04-12 14:00 | MR ---
EXAMINATION TYPE: MR brain wo con DATE OF EXAM: 04/12/2023 COMPARISON: 04/08/2023 HISTORY: Right arm weakness. CONTRAST: Performed utilizing 0 mL intravenous Gadavist gadolinium contrast. TECHNIQUE: Multiplanar, multiecho imaging on a 3.0 Latasha magnet is performed through the brain. Stud y is performed within 24 hours of arrival to the hospital. The craniovertebral junction is normal. The pituitary is normal. Optic chiasm is normal as visualiz ed. Diffusion-weighted imaging is performed. No abnormal hyperintensity is present to suggest an acute i ntracranial infarct or acute ischemic change. Couple of punctate periventricular white matter hypodensities are present, likely on the basis of chr onic white matter ischemic change Ventricles and sulci are prominent for the patient age. IMPRESSION: 1. No suspicious acute intracranial process. 2. Examination appears stable from comparison
[2023-04-12] MEDS: HYDROcodone/APAP 7.5-325MG 1 EACH TAB PO PRN (19:40)
--- NOTE | 2023-04-12 21:19 | P.PN ---
Subjective Progress Note Date: 04/12/23 This is a very pleasant 77-year-old female who presented to the emergency department with recently being discharged home yesterday afternoon from a recent TIA/CVA and had received extensive neurological workup including administration of tPA. Patient started with some right-sided neck pain that she had been having ongoing over the last 3 days prior with no difficulties in the left or right upper extremities. When getting home she noticed she cannot raise her right arm or use her right arm and was concerned that she was having another stroke. Patient with family at the bedside was brought back to the hospital for further evaluation. Patient also reporting some pain in that right shoulder as well as neck. Patient reports she follows with Dr. Mcclure in the outpatient setting with a past medical history of hypertension, recent right total knee arthroplasty about 1 week prior and had been at rehab for strength and mobility. Patient had been continued on aspirin and statin therapy and also given a dose of Plavix. Repeat CT of the head shows no acute intracranial process with no significant interval change from prior CT or MRI and CT of the cervical spine shows degenerative disc changes and for minimal stenosis at the C3-C4 through C6-C7 with disc space narrowing. EKG showed sinus rhythm. Patient also had a venous Doppler done on the right lower extremity as she has been hospitalized and recently had a surgery for total knee arthroplasty to evaluate for DVT and there was no evidence of DVT noted of the right lower extremity. Chest x-ray within normal limits with no acute pulmonary process as well as a shoulder x-ray on the right showing no acute osseous shoulder abnormality with mild degenerative changes of the acromioclavicular junction. Labs revealed hemoglobin was 9.5 and earlier in the day was 9.7, white count within normal limits, sodium slightly low at 133, potassium 4.1, creatinine 0.69, blood sugar is normal, bili 1.2, troponin negative, and urinalysis was negative. Patient was admitted under observation with neurology on consult. 04/12/2023 Patient is seen in follow-up this morning was transferred to [facility] as patient was placed on Cardizem drip as patient had heart rate that was elevated with new onset atrial fibrillation with RVR. Neurology following and cardiology was consulted and patient was placed on Cardizem drip and has converted this morning and is being discontinued and continued on flecainide and metoprolol. Patient also being started on Eliquis and this was discussed with neurology and okay to initiate. Patient reports some improvements in her right shoulder pain although continues to not be able to lift her right arm completely up. Patient reporting some mild shortness of breath with exertion and will discontinue IV fluids as patient is tolerating oral intake and follow-up with a chest x-ray in the a.m. Patient is afebrile and denies any chest pain or palpitations. Will have physical therapy evaluate the patient and continue to monitor closely. Review of systems: Constitutional: No reports of fatigue, fever, or chills Cardiovascular: No reports of chest pain or palpitations Respiratory: reports of intermittent shortness of breath, denies cough GI: No reports of nausea, vomiting, or diarrhea : No reports of dysuria or retention Neurovascular: reports of generalized weakness from recent total knee arthroplasty All medications have been reviewed PHYSICAL EXAMINATION: GENERAL: The patient is alert and oriented x3, not in any acute distress. Well developed, well nourished. Thin built HEENT: Pupils are round and equally reacting to light. EOMI. No scleral icterus. No conjunctival pallor. Normocephalic, atraumatic. No pharyngeal erythema. No thyromegaly. CARDIOVASCULAR: S1 and S2 muffled PULMONARY: Diminished breath sounds bilaterally otherwise chest is clear to auscultation, no wheezing or crackles. ABDOMEN: Soft, nontender, nondistended, normoactive bowel sounds. No palpable organomegaly. MUSCULOSKELETAL: No joint swelling or deformity. EXTREMITIES: No cyanosis, clubbing, or pedal edema. Right knee surgical site is dry and intact with incision noted with no redness or drainage noted NEUROLOGICAL: Gross neurological examination did not reveal any focal deficits. SKIN: No rashes. 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 as patient is having right shoulder and upper arm pain with weakness and difficulty lifting the right arm up past 90 degrees. Patient reports some improvements in her right shoulder pain although continues to be unable to lift her right arm completely up past 90 degrees MRI of the cervical spine was done although not read by radiology yet Patient was transferred to [facility] with new onset atrial fibrillation with RVR and cardiology on consult. Patient was placed on Cardizem and has converted and tra nsition to flecainide and metoprolol and is being started on eliquis and okay per neurology. Repeat MRI of the brain was negative Recent hospitalization with surgical intervention of total knee arthroplasty on the right and underwent Doppler and DVT was ruled out Home medications reviewed and resumed as appropriate Recommend to continue monitoring and increase activity as tolerated. Will have PT/OT therapy evaluate the patient The impression and plan of care has been dictated by Pamela Sherwood, Nurse Practitioner as directed. Dr. Mary Lou MD I have performed a history and examination and MDM of this patient, discussed the same with the dictator, and agree with the dictator's assessment and plan as written ,documented as a scribe. Based on total visit time, I have performed more than 50% of the visit. Objective - Vital Signs Vital signs: Vital Signs Temp 98 F 04/12/23 08:45 Pulse 71 04/12/23 20:00 Resp 16 04/12/23 20:00 BP 145/71 04/12/23 20:00 Pulse Ox 91 L 04/12/23 20:00 FiO2 Intake & Output 04/12/23 04/12/23 04/13/23 06:59 18:59 06:59 Intake Total 1118.167 139.25 Balance 1118.167 139.25 Intake: Intake, IV Titration 38.167 21.25 Amount Diltiazem 125 mg In 38.167 21.25 Sodium Chloride 0.9% 100 ml @ 10 MG/HR 10 mls/hr IV .[id number] [facility] Rx#: [id number] Oral 1080 118 Other: Voiding Method Toilet Toilet Toilet # Voids 1 2 - Labs CBC & Chem 7: 04/12/23 08:48 04/12/23 08:48 Labs: Abnormal Lab Results - Last 24 Hours (Table) 04/12/23 04/12/23 Range/Units 08:48 08:48 RBC 3.37 L (3.80-5.40) m/uL Hgb 10.1 L (11.4-16.0) gm/dL Hct 31.4 L (34.0-46.0) % Chloride 110 H (98-107) mmol/L Carbon Dioxide 20 L (22-30) mmol/L Glucose 108 H (74-99) mg/dL
[2023-04-13] MEDS: PANTOPRAZOLE 40 MG TABLET PO SCH (06:18)
[2023-04-13] MEDS: APIXABAN 5 MG TAB PO SCH ×2 (08:25→19:40)
[2023-04-13] MEDS: SENNOSIDES 8.6 MG TAB PO SCH ×2 (08:25→19:40)
[2023-04-13] MEDS: ATORVASTATIN 40 MG TAB PO SCH (08:25)
[2023-04-13] MEDS: METOPROLOL TARTRATE 50 MG TAB PO SCH ×2 (08:25→19:40)
[2023-04-13] MEDS: FLECAINIDE 50 MG TAB PO SCH ×2 (08:25→19:40)
[2023-04-13] MEDS: LIDOCAINE 4% PATCH TOPICAL SCH (08:25)
--- NOTE | 2023-04-13 11:02 | P.PN ---
Subjective Progress Note Date: 04/12/23 Patient was seen for a follow-up. Patient continues to have right arm weakness. Patient is actually left-hand dominant. No new concerns. Objective - Vital Signs Vital signs: Vital Signs Temp 98.1 F 04/13/23 08:20 Pulse 74 04/13/23 08:20 Resp 18 04/13/23 08:20 BP 126/70 04/13/23 08:20 Pulse Ox 100 04/13/23 08:20 FiO2 Intake & Output 04/12/23 04/13/23 04/13/23 18:59 06:59 18:59 Intake Total 139.25 540 445 Balance 139.25 540 445 Intake: Intake, IV Titration 21.25 Amount Diltiazem 125 mg In 21.25 Sodium Chloride 0.9% 100 ml @ 10 MG/HR 10 mls/hr IV .[id number] [facility] Rx#: [id number] Oral 118 540 445 Other: Voiding Method Toilet Toilet Toilet # Voids 2 1 - Exam Patient's mental status, speech and language functions and cranial nerves are normal. 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 Lower extremities are normal. Sensory to touch is equal with no neglect. Patient has difficulty with performing [id number] testing particularly on the right, because of right deltoid weakness. However if she does not have to extend her shoulder, then there is no ataxia for [id number]-sv-[id number] on the right. - Labs CBC & Chem 7: 04/12/23 08:48 04/12/23 08:48 Assessment and Plan Assessment: * Acute right upper extremity weakness, mainly involving the right deltoid and biceps. Patient has been having neck stiffness for last 2 days, and recently has developed pain in the right shoulder and upper arm region. Rule out C5-C6 radiculopathy. CVA somewhat less likely. 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 Cardiology has seen the patient, started on Eliquis. * Will discontinue aspirin and Plavix. * MRI of the cervical spine completed, but results pending. I do not see any significant spinal canal stenosis or significant disc herniation. * MRI of the brain was performed today, which also does not reveal any suspicious acute intracranial process. Examination appears stable from comparison. I personally reviewed MRI, and agree with findings, no acute ischemic stroke. * Fasting a.m. lipid panel with cholesterol 152, LDL 82, HDL 56, triglycerides 64. Agree with starting Lipitor 40 mg at bedtime. * Hemoglobin A1c 5.5. * 2-D echo revealed technically difficult study for interpretation. Normal right ventricular systolic function with EF 55 to 60%. Normal left ventricular wall thickness. Normal left atrial size. No valvular abnormalities. * Consider orthopedic consultation for right shoulder weakness. May need EMG and nerve conductions of right upper upper extremity as outpatient. * Neurologically clear for discharge.
--- NOTE | 2023-04-13 11:02 | P.PN ---
Subjective HISTORY OF PRESENT ILLNESS: This is a 77-year-old female with a past medical history significant for hypertension and hyperlipidemia. 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 We have been asked to see the patient in consultation for A-fib with RVR. Patient examined at the bedside. Patient presented to the hospital with a chief complaint of right upper arm weakness. She states that she was seen earlier in the week for similar symptoms and was discharged home on . She states afternoon her symptoms began to worsen and she presented back to the hospital. The patient did go into A-fib with RVR overnight. The patient denies a history of atrial fibrillation. She does report having some palpitations yesterday. Patient was still in atrial fibrillation with heart rate around 110 at the time of examination. Her beta-waqas was increased. She has since converted to sinus mechanism. The patient is a non-smoker. She denies any drug use including marijuana. She does report drinking wine on a nightly basis. DIAGNOSTICS: - EKG reveals A-fib with RVR - Chest xray negative for acute process Venous Doppler: Negative for DVT of right lower extremity - Current home cardiac medications include aspirin 81 mg daily, lisinopril 10 mg daily, and atorvastatin 40 mg daily - Echocardiogram performed on April 08, 2023 revealed normal ejection fraction with no significant valvular issues - Cardiac catheterization history: Patient denies April 13, 2023 Patient examined this morning at bedside. Patient denies chest pain or pressure. She denies shortness of breath. Telemetry reveals sinus mechanism with a heart rate in the 70s. She is anticoagulated with Eliquis. She continues to report weakness of her right upper extremity. MRI of the brain was completed which was negative for CVA. PHYSICAL EXAM: VITAL SIGNS: Reviewed. GENERAL: Well-developed in no acute distress. HEENT: Head is normocephalic. Pupils are equal, round. Sclerae anicteric. Mucous membranes of the mouth are moist. Neck supple. No JVD or thyromegaly LUNGS: Respirations even and unlabored. Lungs essentially clear to auscultation bilaterally. HEART: Regular rate and rhythm. S1 and S2 heard. ABDOMEN: Soft. Nondistended. Nontender. EXTREMITIES: Normal range of motion. No clubbing or cyanosis. Peripheral pulses intact. No lower extremity edema NEUROLOGIC: Awake and alert. Oriented x 3. ASSESSMENT: Right upper extremity weakness, rule out neurologic etiology, MRI negative for CVA New onset paroxysmal atrial fibrillation with RVR, currently maintaining sinus mechanism History of hypertension History of hyperlipidemia Daily alcohol use, patient reports having a glass of wine nightly Recent right total knee arthroplasty, March 2023 PLAN: No need to repeat echocardiogram as this was performed earlier this week Lisinopril has been discontinued as patient's blood pressures have been on the lower side Continue current dose of metoprolol Continue anticoagulation with Eliquis Recommend abstinence from alcohol Further recommendations pending patient course Nurse practitioner note has been reviewed by physician. Signing provider agrees with the documented findings, assessment, and plan of care documented by RADIOGRAPHER as a scribe. Objective - Vital Signs Vital signs: Vital Signs Temp 98.1 F 04/13/23 08:20 Pulse 74 04/13/23 08:20 Resp 18 04/13/23 08:20 BP 126/70 04/13/23 08:20 Pulse Ox 100 04/13/23 08:20 FiO2 Intake & Output 04/12/23 04/13/23 04/13/23 18:59 06:59 18:59 Intake Total 139.25 540 445 Balance 139.25 540 445 Intake: Intake, IV Titration 21.25 Amount Diltiazem 125 mg In 21.25 Sodium Chloride 0.9% 100 ml @ 10 MG/HR 10 mls/hr IV .[id number] [facility] Rx#: [id number] Oral 118 540 445 Other: Voiding Method Toilet Toilet Toilet # Voids 2 1 - Labs CBC & Chem 7: 04/12/23 08:48 04/12/23 08:48
--- NOTE | 2023-04-13 11:17 | MR ---
EXAMINATION TYPE: MR cervical spine wo con DATE OF EXAM: 04/11/2023 3:49 PM CLINICAL INDICATION:Female, 77 years old with history of Right arm weakness, neck pain; PHH, Right ar m weakness, neck pain COMPARISON: 04/10/2023. TECHNIQUE: Multi planar, multi sequence imaging was performed utilizing: T1-weighted, T2-weighted, an d turbo inversion recovery imaging of the cervical spine. IV Contrast: cc (none if empty) FINDINGS: Alignment: The cervical vertebral bodies have preserved heights. Alignment is within normal limits gi letha patient positioning. Bones: Scattered osteophytes and disc space narrowing. Multilevel degenerative disc disease is noted and most pronounced at the C5-C7 vertebral levels. Cord: The spinal cord is unremarkable with regards to their signal intensity and morphology. Discs: Intervertebral disc signal is maintained. C2-C3: A disc osteophyte complex is present which minimally narrows the ventral subarachnoid space. No neural foraminal stenosis. C3-C4: A disc osteophyte complex is present which minimally narrows the ventral subarachnoid space. Bilateral facet and uncovertebral joint arthropathy are present with moderate bilateral neural yvonne inal stenosis. C4-C5: A disc osteophyte complex is present which minimally narrows the ventral subarachnoid space. Bilateral facet and uncovertebral joint arthropathy are present with mild to moderate bilateral neur al foraminal stenosis. C5-C6: A disc osteophyte complex is present with moderate spinal canal stenosis. No neural foraminal stenosis. C6-C7: A disc osteophyte complex is present with moderate spinal canal stenosis. Bilateral facet and uncovertebral joint arthropathy are present with moderate bilateral neural foraminal stenosis. C7-T1: No significant disc pathology. The spinal canal is patent. No neural foraminal stenosis. Other: None. IMPRESSION: 1. No evidence for disc herniation or significant spinal canal stenosis 2. Multilevel disc degeneration with associated osteoarthritic changes resulting in moderate spinal c anal stenosis at C5-C6 and C6-C7 and multilevel neural foraminal stenosis worse at C3-C4, C5-C6, and C6-C7 with at least moderate neural foraminal stenosis.
[2023-04-13] MEDS: HYDROcodone/APAP 7.5-325MG 1 EACH TAB PO PRN ×2 (11:44→19:43)
--- NOTE | 2023-04-13 23:26 | P.PN ---
Subjective Progress Note Date: 04/13/23 Patient was seen for a follow-up. Patient continues to have right arm weakness. No new concerns. Patient's was also present today. They want to go home. Objective - Vital Signs Vital signs: Vital Signs Temp 98.1 F 04/13/23 08:20 Pulse 64 04/13/23 11:40 Resp 17 04/13/23 11:40 BP 119/71 04/13/23 11:40 Pulse Ox 95 04/13/23 11:40 FiO2 Intake & Output 04/12/23 04/13/23 04/13/23 18:59 06:59 18:59 Intake Total 139.25 540 555 Balance 139.25 540 555 Intake: Intake, IV Titration 21.25 Amount Diltiazem 125 mg In 21.25 Sodium Chloride 0.9% 100 ml @ 10 MG/HR 10 mls/hr IV .[id number] [facility] Rx#: [id number] Oral 118 540 555 Other: Voiding Method Toilet Toilet Toilet # Voids 2 1 - Exam Patient's mental status, speech and language functions and cranial nerves are normal. 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 Lower extremities are normal. Sensory to touch is equal with no neglect. Patient has difficulty with performing [id number] testing particularly on the right, because of right deltoid weakness. However if she does not have to extend her shoulder, then there is no ataxia for [id number]-mq-[id number] on the right. - Labs CBC & Chem 7: 04/12/23 08:48 04/12/23 08:48 Assessment and Plan Assessment: * Acute right upper extremity weakness, mainly involving the right deltoid and biceps. Patient has been having neck stiffness for last 2 days, and recently has developed pain in the right shoulder and upper arm region. Probable right C5-C6 radiculopathy. CVA somewhat less likely. 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 Cardiology has seen the patient, started on Eliquis. * Will discontinue aspirin and Plavix. * MRI of the cervical spine revealed no evidence for disc herniation or significant spinal canal stenosis. Multilevel disc degeneration with associated osteoarthritic changes resulting in moderate spinal canal stenosis at C5-C6 and C6-C7 and multilevel neural foraminal stenosis, worse at C3-C4, C5-C6 and C6-C7 with at least moderate neural foraminal stenosis. * MRI of the brain 04/12/2023 does not reveal any suspicious acute intracranial process. Examination appears stable from comparison. I personally reviewed MRI, and agree with findings, no acute ischemic stroke. * Patient's right deltoid and biceps weakness is of unclear cause. No evidence of acute CVA. Patient probably has right C5-C6 radiculopathy. Rotator cuff tear is also a possibility, but should not involve weakness of the right biceps muscle. * Recommend orthopedic consultation for right shoulder weakness. May need EMG and nerve conductions of right upper upper extremity as outpatient. * Fasting a.m. lipid panel with cholesterol 152, LDL 82, HDL 56, triglycerides 64. Agree with starting Lipitor 40 mg at bedtime. * Hemoglobin A1c 5.5. * 2-D echo revealed technically difficult study for interpretation. Normal right ventricular systolic function with EF 55 to 60%. Normal left ventricular wall thickness. Normal left atrial size. No valvular abnormalities. * Neurologically clear for discharge.
[2023-04-14] MEDS: PANTOPRAZOLE 40 MG TABLET PO SCH (06:00)
--- NOTE | 2023-04-14 06:49 | P.PN ---
Subjective Progress Note Date: 04/13/23 This is a very pleasant 77-year-old female who presented to the emergency department with recently being discharged home yesterday afternoon from a recent TIA/CVA and had received extensive neurological workup including administration of tPA. Patient started with some right-sided neck pain that she had been having ongoing over the last 3 days prior with no difficulties in the left or right upper extremities. When getting home she noticed she cannot raise her right arm or use her right arm and was concerned that she was having another stroke. Patient with family at the bedside was brought back to the hospital for further evaluation. Patient also reporting some pain in that right shoulder as well as neck. Patient reports she follows with Dr. Mcclure in the outpatient setting with a past medical history of hypertension, recent right total knee arthroplasty about 1 week prior and had been at rehab for strength and mobility. Patient had been continued on aspirin and statin therapy and also given a dose of Plavix. Repeat CT of the head shows no acute intracranial process with no significant interval change from prior CT or MRI and CT of the cervical spine shows degenerative disc changes and for minimal stenosis at the C3-C4 through C6-C7 with disc space narrowing. EKG showed sinus rhythm. Patient also had a venous Doppler done on the right lower extremity as she has been hospitalized and recently had a surgery for total knee arthroplasty to evaluate for DVT and there was no evidence of DVT noted of the right lower extremity. Chest x-ray within normal limits with no acute pulmonary process as well as a shoulder x-ray on the right showing no acute osseous shoulder abnormality with mild degenerative changes of the acromioclavicular junction. Labs revealed hemoglobin was 9.5 and earlier in the day was 9.7, white count within normal limits, sodium slightly low at 133, potassium 4.1, creatinine 0.69, blood sugar is normal, bili 1.2, troponin negative, and urinalysis was negative. Patient was admitted under observation with neurology on consult. 04/12/2023 Patient is seen in follow-up this morning was transferred to [facility] as patient was placed on Cardizem drip as patient had heart rate that was elevated with new onset atrial fibrillation with RVR. Neurology following and cardiology was consulted and patient was placed on Cardizem drip and has converted this morning and is being discontinued and continued on flecainide and metoprolol. Patient also being started on Eliquis and this was discussed with neurology and okay to initiate. Patient reports some improvements in her right shoulder pain although continues to not be able to lift her right arm completely up. Patient reporting some mild shortness of breath with exertion and will discontinue IV fluids as patient is tolerating oral intake and follow-up with a chest x-ray in the a.m. Patient is afebrile and denies any chest pain or palpitations. Will have physical therapy evaluate the patient and continue to monitor closely. 04/13/2023 Patient is seen in follow-up with neurology and cardiology following. Patient reports some improvement in her right upper extremity pain although continues to be unable to completely lift her right arm. MRI of the brain was negative and neurology has cleared the patient recommending outpatient studies with EMG and orthopedic evaluation. Patient also being followed by cardiology and is now maintained on eliquis along with metoprolol and currently rate controlled. Will have physical therapy evaluate the patient in the a.m. and discussed possible discharge planning. Review of systems: Constitutional: No reports of fatigue, fever, or chills Cardiovascular: No reports of chest pain or palpitations Respiratory: reports of intermittent shortness of breath, denies cough GI: No reports of nausea, vomiting, or diarrhea : No reports of dysuria or retention Neurovascular: reports of generalized weakness from recent total knee arthroplasty, reports continued difficulty raising the right arm All medications have been reviewed PHYSICAL EXAMINATION: GENERAL: The patient is alert and oriented x3, not in any acute distress. Well developed, well nourished. Thin built HEENT: Pupils are round and equally reacting to light. EOMI. No scleral icterus. No conjunctival pallor. Normocephalic, atraumatic. No pharyngeal erythema. No thyromegaly. CARDIOVASCULAR: S1 and S2 muffled PULMONARY: Diminished breath sounds bilaterally otherwise chest is clear to auscultation, no wheezing or crackles. ABDOMEN: Soft, nontender, nondistended, normoactive bowel sounds. No palpable organomegaly. MUSCULOSKELETAL: No joint swelling or deformity. EXTREMITIES: No cyanosis, clubbing, or pedal edema. Right knee surgical site is dry and intact with incision noted with no redness or drainage noted NEUROLOGICAL: Gross neurological examination did not reveal any focal deficits. SKIN: No rashes. Assessment: Right side neck and shoulder pain likely secondary to radiculopathy with right- sided weakness and difficulty elevating past 90 degrees New onset atrial fibrillation with fast ventricular rate, started on Cardizem and he has been transition to oral metoprolol. 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 Repeat MRI was negative. As patient is having right shoulder and upper arm pain with wea kness and difficulty lifting the right arm up past 90 degrees. Patient reports some improvements in her right shoulder pain although continues to be unable to lift her right arm completely up past 90 degrees. Outpatient follow-up for EMG studies with neurology and will discuss further with orthopedics as she is following with them for the right recent total knee arthroplasty Recent hospitalization with surgical intervention of total knee arthroplasty on the right and underwent Doppler and DVT was ruled out Home medications reviewed and resumed as appropriate Recommend to continue monitoring and increase activity as tolerated. Will have PT/OT therapy evaluate the patient Possible discharge in 24 hours The impression and plan of care has been dictated by Pamela Sherwood, Nurse Practitioner as directed. Dr. Mary Lou MD I have performed a history and examination and MDM of this patient, discussed the same with the dictator, and agree with the dictator's assessment and plan as written ,documented as a scribe. Based on total visit time, I have performed more than 50% of the visit. Objective - Vital Signs Vital signs: Vital Signs Temp 98.1 F 04/13/23 08:20 Pulse 62 04/13/23 16:00 Resp 17 04/13/23 16:00 BP 111/58 04/13/23 16:00 Pulse Ox 98 04/13/23 16:00 FiO2 Intake & Output 04/12/23 04/13/23 04/13/23 18:59 06:59 18:59 Intake Total 139.25 540 555 Balance 139.25 540 555 Intake: Intake, IV Titration 21.25 Amount Diltiazem 125 mg In 21.25 Sodium Chloride 0.9% 100 ml @ 10 MG/HR 10 mls/hr IV .[id number] [facility] Rx#: [id number] Oral 118 [id number] Other: Voiding Method Toilet Toilet Toilet # Voids 2 1 - Labs CBC & Chem 7: 04/12/23 08:48 04/12/23 08:48
[2023-04-14] MEDS: SENNOSIDES 8.6 MG TAB PO SCH (08:43)
[2023-04-14] MEDS: FLECAINIDE 50 MG TAB PO SCH (08:43)
[2023-04-14] MEDS: ATORVASTATIN 40 MG TAB PO SCH (08:43)
[2023-04-14] MEDS: METOPROLOL TARTRATE 50 MG TAB PO SCH (08:43)
[2023-04-14] MEDS: APIXABAN 5 MG TAB PO SCH (08:43)
[2023-04-14] MEDS: LIDOCAINE 4% PATCH TOPICAL SCH (08:44)
[2023-04-14 09:41] VITALS: TEMP 98.1
[2023-04-14 11:33] VITALS: BP 105/67; PULSE 59; RESP 16
== END 2023-04-14 11:45 | disposition home or self-care (01) | DRG 552 ==
LOC: EC 16:36 → 3SCARD 19:27 → 5NMEDONC 04-11 13:27 → 3SCARD 04-11 14:36
PROVIDERS: ADMIT Hospitalist; ATTEND Hospitalist
DX: M50.123 Cervical disc disorder at C6-C7 level with radiculopathy (principal); E87.1 Hypo-osmolality and hyponatremia; I48.0 Paroxysmal atrial fibrillation; R53.1 Weakness; R29.810 Facial weakness; M19.011 Primary osteoarthritis, right shoulder; M47.22 Other spondylosis with radiculopathy, cervical region; M48.02 Spinal stenosis, cervical region; D64.9 Anemia, unspecified; E78.5 Hyperlipidemia, unspecified; G43.009 Migraine without aura, not intractable, without status migrainosus; Z79.01 Long term (current) use of anticoagulants; Z79.899 Other long term (current) drug therapy; Z79.82 Long term (current) use of aspirin; Z86.73 Personal history of transient ischemic attack (TIA), and cerebral infarction without residual deficits; Z90.710 Acquired absence of both cervix and uterus; Z96.651 Presence of right artificial knee joint
CPT/HCPCS: 36415; 70450; 70551; 71046; 72125; 72141; 80048; 80053; 80061; 81003; 82550; 83735; 84443; 84484; 85025; 85610; 85730; 93005; 96360; 96361; 99285

== ENCOUNTER → 2023-10-21 | Outpatient (CLI) | payer MEDICARE | END | disposition home or self-care (01) | LOC: LABPRL 09:00 | PROVIDERS: ATTEND Family Medicine | DX: Z11.59 Encounter for screening for other viral diseases | CPT/HCPCS: 80053; 80061; 82306; 84443; 85025; 86803 ==

== ENCOUNTER → 2024-03-01 | Outpatient (CLI) | payer MEDICARE ==
--- NOTE | 2024-03-01 12:32 | XR ---
EXAMINATION TYPE: XR lumbar spine 2 or 3V DATE OF EXAM: 03/01/2024 12:16 PM COMPARISON: 03/01/2024 CLINICAL INDICATION: Female, 78 years old with history of M54.50 LOW BACK PAIN, UNSPECIFIED; TECHNIQUE: XR lumbar spine 2 or 3V - Frontal, lateral and coned in L5-S1 lateral views of the spine. FINDINGS: No evidence of any acute osseous pathology. No evidence of loss of vertebral body height i s seen. There is normal alignment of the lumbar vertebral bodies. Scattered disc space narrowing. Mul tilevel marginal osteophyte formation throughout the visualized spine. There is facet joint arthropat hy throughout the spine. Scattered at least mild neural foraminal stenosis. IMPRESSION: 1. No acute fracture. 2. Moderate multilevel disc degeneration. [facility], , 03/01/2024 12:29 PM
== END | disposition home or self-care (01) ==
LOC: RADXRMAIN 12:01
PROVIDERS: ATTEND Family Medicine
DX: M51.372 Other intervertebral disc degeneration, lumbosacral region with discogenic back pain and lower extremity pain (principal); M99.73 Connective tissue and disc stenosis of intervertebral foramina of lumbar region; M47.897 Other spondylosis, lumbosacral region
CPT/HCPCS: 72100

== ENCOUNTER → 2024-03-29 | Outpatient (CLI) | payer MEDICARE ==
[2024-03-29 10:28] LABS: ALT 16 U/L (8-44); AST 16 U/L (13-35); Chol/HDL Ratio 2.52 Ratio; LDL Cholesterol,Calculated 98.3 mg/dL (0.0-131.0); VLDL Calculation 12.84 mg/dL (5.00-40.00)
== END | disposition home or self-care (01) ==
LOC: LABWHC1 07:23
PROVIDERS: ATTEND Nurse Practitioner Acute Care
DX: E78.2 Mixed hyperlipidemia (principal)
CPT/HCPCS: 36415; 80061; 84450; 84460

== ENCOUNTER → 2024-03-29 | Outpatient (CLI) | payer MEDICARE ==
--- NOTE | 2024-03-29 11:22 | MM ---
Reason for Exam: Screening (asymptomatic). Last mammogram was performed 1 year(s) and 1 month(s) ago. Patient History: Menarche at age 14. First Full-Term at age 26. Hysterectomy at age 57. Postmenopausal. 03/18/2003, Benign Stereotactic Core Biopsy on the right side. Risk Values: Yolanda 5 year model risk: 2.3%. NCI Lifetime model risk: 4.4%. Prior Study Comparison: 02/22/2021 Bilateral Screening Mammogram, [facility]. 02/25/2022 Bilateral MG 3D screening mammo w/cad, [facility]. 02/26/2023 Bilateral MG 3D screening mammo w/cad, [facility]. Tissue Density: The breasts are heterogeneously dense, which may obscure small masses. Analyzed By CAD. Overall Assessment: Benign, BI-RAD 2 Management: Screening Mammogram of both breasts in 1 year. Electronically signed and approved by: Won Pierson M.D.
--- NOTE | 2024-03-29 11:36 | BD ---
EXAMINATION TYPE: Axial Bone Density DATE OF EXAM: 03/29/2024 CLINICAL HISTORY: 78 years old Female. ICD-10 CODE: Z78.0 ASYMPTOMATIC MENOPAUSAL STA , Additional H istory: Height: 63 Weight: 125 FRAX RISK QUESTIONS: Alcohol (3 or more units per day): yes Family History (Parent hip fracture): no History of Fracture in Adulthood: yes Secondary Osteoporosis: no RISK FACTORS HISTORY OF: Surgery to Spine/Hip(right/left)/Wrist (right/left): no MEDICATIONS: Thyroid Medications: no Osteoporosis Medications: no EXAM MEASUREMENTS: Bone mineral densitometry was performed using the [employer] System. Bone mineral density as measured about the Lumbar spine is: ----- L1-L4(G/cm2): 1.374 T Score Values are as follows: ----- L1: -0.1 ----- L2: 1.3 ----- L3: 2.3 ----- L4: 2.3 ----- L1-L4: 1.6 Z Score Values are as follows: ----- L1: 2.0 ----- L2: 3.4 ----- L3: 4.4 ----- L4: 4.4 ----- L1-L4: 3.7 Bone mineral density has: Increased 2.9% since study of: 12/20/2019 Bone mineral density about the R hip (g/cm2): 0.905 Bone mineral density about the L hip (g/cm2): 0.902 T Score values are as follows: -----R Neck: -1.4 -----L Neck: -1.6 -----R Total: -0.8 -----L Total: -0.8 Z Score values are as follows: -----R Neck: 0.8 -----L Neck: 0.6 -----R Total: 1.2 -----L Total: 1.2 Bone mineral density has: Decreased -3.9% since study of: 12/20/2019 FRAX%s: The graph provided illustrates a 21.5% chance for a major osteoporotic fx and a 6.0% chance f or the hips probability for fx in 10 years time. IMPRESSION: Osteopenia (T Score between -2.5 and -1) remains present. There is slightly increased risk of fracture and the patient may be considered for treatment. Re-Screen 2-5 years. NOTE: T-SCORE=SD OF THE YOUNG ADULT MEAN. [facility], , 03/29/2024 11:34 AM
== END | disposition home or self-care (01) ==
LOC: RADMAMWWP 07:52
PROVIDERS: ATTEND Family Medicine
DX: Z12.31 Encounter for screening mammogram for malignant neoplasm of breast (principal); R92.333 Mammographic heterogeneous density, bilateral breasts; Z78.0 Asymptomatic menopausal state; M85.89 Other specified disorders of bone density and structure, multiple sites
CPT/HCPCS: 77063; 77067; 77080

== ENCOUNTER → 2024-07-19 | Outpatient (CLI) | payer MEDICARE ==
[2024-07-19 11:08] LABS: ALT 20 U/L (8-44); AST 24 U/L (13-35); Chol/HDL Ratio 2.25 Ratio; LDL Cholesterol,Calculated 85.8 mg/dL (0.0-131.0); VLDL Calculation 10.32 mg/dL (5.00-40.00)
== END | disposition home or self-care (01) ==
LOC: LABWHC1 06:58
PROVIDERS: ATTEND Internal Medicine
DX: E78.2 Mixed hyperlipidemia (principal)
CPT/HCPCS: 36415; 80061; 84450; 84460